=== PATIENT | male | born 1990 | race Caucasian/White ===

== ENCOUNTER 2022-09-28 15:52 | Outpatient (CLI) | payer BC, SELFPAY ==
[2022-09-28 16:08] LABS: Basophils Percent Auto 0.7 % (0.2-1.2); Eosinophils Absolute Auto 0.1 K/mm3 (0-0.3); Eosinophils Percent Auto 1.9 % (0-4.4); Hematocrit 42.7 % (42.0-52.0); Hemoglobin 15.9 g/dL (14.0-18.0); Immature Granulocyte Absolute 0.02 K/mm3 (0.00-0.031); Immature Granulocyte Percent A 0.5 % (0-0.5); Lymphocytes Absolute Auto 1.27 K/mm3 (0.9-3.2); Lymphocytes Percent Auto 30.2 % (18.3-44.2); Mean Corpuscular HGB Conc 37.2 g/dl (32-36); Mean Corpuscular Hemoglobin 31.6 pg (26-34); Mean Corpuscular Volume 84.9 fl (80-100); Mean Platelet Volume 10.6 fl (7.4-10.4); Monocytes Absolute Auto 0.3 K/mm3 (0.1-0.6); Monocytes Percent Auto 8.1 % (2.6-8.5); Neutrophils Absolute Auto 2.5 K/mm3 (1.3-6.7); Neutrophils Percent Auto 58.6 % (45.5-73.1); Platelet Count Result 179 k/mm3 (150-375); Red Blood Count 5.03 M/mm3 (4.6-6.20); Red Cell Distribution Width 11.9 % (11.5-14.5); White Blood Count 4.2 K/mm3 (4.5-10.0)
[2022-09-28 16:42] LABS: Alanine Aminotransferase 27 U/L (6-50); Albumin Level 4.9 g/dL (3.5-5.1); Alkaline Phosphatase 65 U/L (38-126); Anion Gap 7 mmol/L (8-16); Aspartate Amino Transferase 31 U/L (17-59); Blood Urea Nitrogen 22 mg/dL (9-20); CRP < 0.5 mg/dL (<1.0); Calcium 9.4 mg/dL (8.4-10.2); Carbon Dioxide 31 mmol/L (22-30); Chloride 98 mmol/L (98-107); Estimated Glomerular Filt Rate > 60; Glucose 92 mg/dL (65-110); Potassium 4.1 mmol/L (3.4-5.0); Sodium 136 mmol/L (137-145)
[2022-09-28 17:21] LABS: Erythrocyte Sedimentation Rate 4 mm/hr (0-20)
== END 2022-09-28 15:53 | disposition home or self-care (01) ==
LOC: ANHLAB 15:58
PROVIDERS: Visit Provider Internal Medicine Hematology & Oncology
DX: R59.1 Generalized enlarged lymph nodes (principal)
CPT/HCPCS: 36415; 80053; 85025; 85652; 86140; 88184

== ENCOUNTER 2023-01-17 07:06 | Outpatient (CLI) | payer BC, SELFPAY ==
--- NOTE | ~2023-01-17 | CT_ITS ---
EXAMINATION: CT abdomen pelvis w con DATE: 01/17/2023 07:43 INDICATION: Lymphadenopathy TECHNIQUE: Computed tomography (CT) of the abdomen and pelvis was performed with 100 mL Omnipaque-350 intravenous contrast. Automated exposure control and iterative reconstruction technique were employe d. The dose-length product was 371.95 mGy-cm. COMPARISON: None FINDINGS: Lung bases are clear. Heart size is normal. No pericardial or pleural effusion. Liver, gallbladder, p ancreas, bilateral adrenal glands and kidneys are normal. Mild splenomegaly measuring 14.6 cm in maxi mal AP length. Bowels including the appendix are normal. Bladder is normal. No free intraperitoneal g as or fluid. No pathologically enlarged abdominal or pelvic lymphadenopathy. There is relatively symm etric subarticular sclerosis with blurring of the trabecular pattern posterior superiorly at the bila teral femoral heads suspicious for early osteonecrosis. Prominent sclerotic bone island in the right supra-acetabular region. IMPRESSION: 1. Nonspecific mild splenomegaly. No pathologically enlarged abdominal or pelvic lymphadenopathy. 2. Suggestion of early osteonecrosis at the bilateral femoral heads. Could consider further evaluatio n with MRI. Reviewed, dictated and finalized at location L. IMPRESSION: 1. Nonspecific mild splenomegaly. No pathologically enlarged abdominal or pelvi c lymphadenopathy. 2. Suggestion of early osteonecrosis at the bilateral femoral heads. Could cons ider further evaluation with MRI.
[2023-01-17 08:42] LABS: Basophils Percent Auto 1.1 % (0.2-1.2); Eosinophils Absolute Auto 0.1 K/mm3 (0-0.3); Eosinophils Percent Auto 2.6 % (0-4.4); Hematocrit 42.1 % (42.0-52.0); Hemoglobin 15.5 g/dL (14.0-18.0); Immature Granulocyte Absolute 0.02 K/mm3 (0.00-0.031); Immature Granulocyte Percent A 0.5 % (0-0.5); Lymphocytes Absolute Auto 1.06 K/mm3 (0.9-3.2); Lymphocytes Percent Auto 27.9 % (18.3-44.2); Mean Corpuscular HGB Conc 36.8 g/dl (32-36); Mean Corpuscular Hemoglobin 31.4 pg (26-34); Mean Corpuscular Volume 85.2 fl (80-100); Mean Platelet Volume 10.7 fl (7.4-10.4); Monocytes Absolute Auto 0.3 K/mm3 (0.1-0.6); Monocytes Percent Auto 8.7 % (2.6-8.5); Neutrophils Absolute Auto 2.3 K/mm3 (1.3-6.7); Neutrophils Percent Auto 59.2 % (45.5-73.1); Platelet Count Result 160 k/mm3 (150-375); Red Blood Count 4.94 M/mm3 (4.6-6.20); Red Cell Distribution Width 12.2 % (11.5-14.5); White Blood Count 3.8 K/mm3 (4.5-10.0)
[2023-01-17 08:56] LABS: Alanine Aminotransferase 25 U/L (6-50); Albumin Level 4.7 g/dL (3.5-5.1); Alkaline Phosphatase 57 U/L (38-126); Anion Gap 6 mmol/L (8-16); Aspartate Amino Transferase 26 U/L (17-59); Bilirubin,Total 1.2 mg/dL (0.2-1.3); Blood Urea Nitrogen 23 mg/dL (9-20); Calcium 9.2 mg/dL (8.4-10.2); Carbon Dioxide 31 mmol/L (22-30); Chloride 100 mmol/L (98-107); Estimated Glomerular Filt Rate > 60; Glucose 84 mg/dL (65-110); Potassium 4.2 mmol/L (3.4-5.0); Sodium 137 mmol/L (137-145)
== END 2023-01-17 07:07 | disposition home or self-care (01) ==
PROVIDERS: PCP Nurse Practitioner Family; Visit Provider Internal Medicine Hematology & Oncology
DX: R59.1 Generalized enlarged lymph nodes (principal)
CPT/HCPCS: 36415; 74177; 80053; 85025; Q9967

== ENCOUNTER 2023-07-16 12:31 | Outpatient (CLI) | payer BC, SELFPAY ==
[2023-07-16 12:48] LABS: Basophils Absolute Auto 0.1 K/mm3 (0.0-0.1); Basophils Percent Auto 1.2 % (0.2-1.2); Eosinophils Absolute Auto 0.1 K/mm3 (0-0.3); Hematocrit 43.2 % (42.0-52.0); Hemoglobin 15.7 g/dL (14.0-18.0); Immature Granulocyte Absolute 0.02 K/mm3 (0.00-0.031); Immature Granulocyte Percent A 0.5 % (0-0.5); Lymphocytes Absolute Auto 0.91 K/mm3 (0.9-3.2); Lymphocytes Percent Auto 22.6 % (18.3-44.2); Mean Corpuscular HGB Conc 36.3 g/dl (32-36); Mean Corpuscular Hemoglobin 30.8 pg (26-34); Mean Corpuscular Volume 84.7 fl (80-100); Mean Platelet Volume 10.6 fl (7.4-10.4); Monocytes Absolute Auto 0.3 K/mm3 (0.1-0.6); Monocytes Percent Auto 7.2 % (2.6-8.5); Neutrophils Absolute Auto 2.7 K/mm3 (1.3-6.7); Neutrophils Percent Auto 66.5 % (45.5-73.1); Platelet Count Result 179 k/mm3 (150-375); Red Cell Distribution Width 12.4 % (11.5-14.5)
[2023-07-16 13:45] LABS: Alanine Aminotransferase 19 U/L (6-50); Albumin Level 4.9 g/dL (3.5-5.1); Alkaline Phosphatase 52 U/L (38-126); Anion Gap 8 mmol/L (8-16); Aspartate Amino Transferase 22 U/L (17-59); Blood Urea Nitrogen 20 mg/dL (9-20); Calcium 9.6 mg/dL (8.4-10.2); Carbon Dioxide 31 mmol/L (22-30); Chloride 101 mmol/L (98-107); Estimated Glomerular Filt Rate > 60; Glucose 86 mg/dL (65-110); Potassium 4.2 mmol/L (3.4-5.0); Sodium 140 mmol/L (137-145)
== END 2023-07-16 12:32 | disposition home or self-care (01) ==
LOC: ANHLAB 12:33
PROVIDERS: PCP Nurse Practitioner Family; Visit Provider Internal Medicine Hematology & Oncology
DX: R59.1 Generalized enlarged lymph nodes (principal)
CPT/HCPCS: 36415; 80053; 85025

== ENCOUNTER 2024-03-23 10:21 | Outpatient (CLI) | payer BC, SELFPAY ==
[2024-03-23 10:42] LABS: Basophils Percent Auto 0.5 % (0.2-1.2); Eosinophils Absolute Auto 0.2 K/mm3 (0-0.3); Hematocrit 43.8 % (42.0-52.0); Hemoglobin 15.7 g/dL (14.0-18.0); Immature Granulocyte Absolute 0.01 K/mm3 (0.00-0.031); Immature Granulocyte Percent A 0.3 % (0-0.5); Lymphocytes Absolute Auto 1.14 K/mm3 (0.9-3.2); Lymphocytes Percent Auto 30.2 % (18.3-44.2); Mean Corpuscular HGB Conc 35.8 g/dl (32-36); Mean Corpuscular Volume 86.4 fl (80-100); Mean Platelet Volume 11.2 fl (7.4-10.4); Monocytes Absolute Auto 0.4 K/mm3 (0.1-0.6); Monocytes Percent Auto 9.5 % (2.6-8.5); Neutrophils Absolute Auto 2.1 K/mm3 (1.3-6.7); Neutrophils Percent Auto 55.5 % (45.5-73.1); Platelet Count Result 181 k/mm3 (150-375); Red Blood Count 5.07 M/mm3 (4.6-6.20); Red Cell Distribution Width 12.2 % (11.5-14.5); White Blood Count 3.8 K/mm3 (4.5-10.0)
[2024-03-23 10:48] LABS: Blood Urea Nitrogen 22 mg/dL (8-26); Carbon Dioxide 28 mmol/L (22-30); Chloride 101 mmol/L (98-109); Estimated Glomerular Filt Rate > 60; Glucose 81 mg/dL (70-105); Ionized Calcium (POC) 1.26 mmol/L (1.11-1.31); Potassium 4.3 mmol/L (3.5-4.9); Sodium 140 mmol/L (138-146)
[2024-03-23 16:44] LABS: Alanine Aminotransferase 20 U/L (6-50); Albumin Level 4.8 g/dL (3.5-5.1); Alkaline Phosphatase 59 U/L (38-126); Anion Gap 9 mmol/L (4-12); Aspartate Amino Transferase 33 U/L (17-59); Bilirubin,Total 1.4 mg/dL (0.2-1.3); Blood Urea Nitrogen 23 mg/dL (9-20); Calcium 9.6 mg/dL (8.4-10.2); Carbon Dioxide 29 mmol/L (22-30); Chloride 101 mmol/L (98-107); Estimated Glomerular Filt Rate > 60; Glucose 78 mg/dL (65-110); Lactate Dehydrogenase 173 U/L (120-246); Potassium 4.5 mmol/L (3.4-5.0); Sodium 139 mmol/L (137-145)
== END 2024-03-23 10:22 | disposition home or self-care (01) ==
LOC: ANHLAB 10:23
PROVIDERS: PCP Nurse Practitioner Family; Visit Provider Internal Medicine Hematology & Oncology
DX: R59.1 Generalized enlarged lymph nodes (principal)
CPT/HCPCS: 36415; 80047; 80053; 83615; 85025

== ENCOUNTER 2025-03-25 08:58 | Outpatient (CLI) | payer BC, SELFPAY ==
--- OUTSIDE RECORDS SUMMARY | 2025-03-25 09:07 | XMS_ITS | Encounter Summary ---
Author Organization [facility] Address 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 Gender Identity Not on file Sexual Orientation Not on file documented as of this encounter Plan of Treatment Upcoming Encounters Date Type Department Care Team (Late st Contact Info) Description 03/25/2025 10:00 AM CDT Office Visit [facility] Oncology and Hematology - [place] [address] [place] [address] [facility] [address] [place] [address] Varun Jenkins MD [address] [place] [address] documented as of this encounter Procedures Procedure Name Priority Date/Time Associated Diagnosis Comments CBC WITH DIFFERENTIAL Routine 09/06/2007 9:51 AM SPORTS EQUIPMENT SUPERVISOR CBC WITH DIFFERENTIAL Routine 09/06/2007 9:51 AM SPORTS EQUIPMENT SUPERVISOR TSH Routine 09/06/2007 9:51 AM SPORTS EQUIPMENT SUPERVISOR COMPREHENSIVE METABOLIC PANEL Routine 09/06/2007 9:51 AM SPORTS EQUIPMENT SUPERVISOR documented in this encounter Results * (ABNORMAL) CBC WITH DIFFERENTIAL (09/06/2007 9:51 AM SPORTS EQUIPMENT SUPERVISOR) Pathologist [facility] NEUTROPHILS 54 45 - 70 % INTERFAC E SYSTEM LYMPHOCYTES 32 16 - 45 % INTERFAC E SYSTEM MONOCYTES 11 3 - 13 % INTERFACE SYSTEM EOSINOPHILS 2 0 - 7 % INTERFAC E SYSTEM BASOPHILS 1 0 - 2 % INTERFACE SYSTEM NEUTROPHIL ABSOLUTE 1.73(L) 1.90 - 7.00 K/uL INTERFACE SYSTEM LYMPHOCYTE ABSOLUTE 1.01 0.70 - 4.50 K/uL INTERFACE SYSTEM MONOCYTE ABSOLUTE 0.36 0.10 - 1.30 K/uL INTERFACE SYSTEM EOSINOPHIL ABSOLUTE 0.06 0.00 - 0.70 K/uL INTERFACE SYSTEM BASOPHILS ABSOLUTE 0.02 0.00 - 0.20 K/uL INTERFACE SYSTEM 09/06/2007 9:51 AM SPORTS EQUIPMENT SUPERVISOR us History Conversion HEMATOLOGY ORDERABLES Edited Performing Organization Address City/[facility] de Phone Number INTERFACE SYSTEM Refer to clinic/hospital department * (ABNORMAL) CBC WITH DIFFERENTIAL (09/06/2007 9:51 AM SPORTS EQUIPMENT SUPERVISOR) [facility] WBC 3.2(L) 4.0 - 9.8 K/uL INTERFACE SYSTEM RBC 5.21 4.50 - 5.40 M/uL INTERFACE SYSTEM HEMOGLOBIN 16.0 13.6 - 16.5 g/dL INTERFACE SYSTEM HEMATOCRIT 44.0 40.0 - 48.0 % INTERFACE SYSTEM MCV 84.4 82.0 - 99.0 fL INTERFACE SYSTEM MCH 30.7 27.2 - 32.6 pg INTERFACE SYSTEM MCHC 36.4(H) 31.5 - 35.5 % INTERFACE SYSTEM RDW 13.5 11.5 - 14.5 % INTERFACE SYSTEM RDW-STDEV 40.5 37.1 - 48.7 fL INTERFACE SYSTEM PLATELETS 175 140 - 350 K/uL INTERFACE SYSTEM MPV 12.0 9.3 - 12.4 fL INTERFACE SYSTEM 09/06/2007 9:51 AM SPORTS EQUIPMENT SUPERVISOR us History Conversion HEMATOLOGY ORDERABLES Edited Performing Organization Address [facility] de Phone Number INTERFACE SYSTEM Refer to clinic/hospital department * TSH (09/06/2007 9:51 AM SPORTS EQUIPMENT SUPERVISOR) TSH 1.39 0.27 - 4.20 uU/mL INTERFACE SYSTEM 09/06/2007 9:51 AM SPORTS EQUIPMENT SUPERVISOR us History Conversion CHEMISTRY ORDERABLES Edited INTERFACE SYSTEM Refer to clinic/hospital department * (ABNORMAL) COMPREHENSIVE METABOLIC PANEL (09/06/2007 9:51 AM SPORTS EQUIPMENT SUPERVISOR) GLUCOSE 86 60 - 110 mg/dL INTERFACE SYSTEM CREATININE 0.82 0.67 - 1.17 mg/dL INTERFACE SYSTEM CALCIUM 9.0 8.4 - 10.2 mg/dL INTERFACE SYSTEM ALKALINE PHOSPHATASE 264 40 - 390 U/L INTERFACE SYSTEM AST 33 12 - 38 U/L INTERFACE SYSTEM ALT 23 0 - 41 U/L INTERFACE SYSTEM TOTAL PROTEIN 7.1 6.3 - 8.6 g/dL INTERFACE SYSTEM ALBUMIN 4.7(H) 3.2 - 4.5 g/dL INTERFACE SYSTEM BILIRUBIN TOTAL 1.4(H) 0.2 - 1.0 mg/dL INTERFACE SYSTEM BUN 19 6 - 20 mg/dL INTERFACE SYSTEM SODIUM 140 135 - 145 mmol/L INTERFACE SYSTEM POTASSIUM 4.7 3.5 - 4.9 mmol/L INTERFACE SYSTEM CHLORIDE 102 96 - 108 mmol/L INTERFACE SYSTEM CO2 29 22 - 30 mmol/L INTERFACE SYSTEM GFR, N/A:MDRD equation validated for pts. >18 yrs. >=60 mL/min/1 .7 sq meter INTERFACE SYSTEM GFR N/A:MDRD equation validated for pts. >18 yrs. >=60 mL/min/1 .7 sq meter INTERFACE SYSTEM Comment: Estimated GFR rate interpretative information for both Americans and non- Americans is available on the [facility] Intranet at: [email or web address] Select: Lab Policies and Procedures Select: Reference Ranges - GFR 09/06/2007 9:51 AM SPORTS EQUIPMENT SUPERVISOR us History Conversion CHEMISTRY ORDERABLES Edited INTERFACE SYSTEM Refer to clinic/hospital department documented in this encounter Visit Diagnoses Diagnosis Variants of migraine, not elsewhere classified, without mention of intractable migraine without mention of status migrainosus Lymphadenopathy- Primary Enlargement of lymph nodes documented in this encounter
--- OUTSIDE RECORDS SUMMARY | 2025-03-25 09:07 | XMS_ITS | Clinical Summary ---
Author Organization [facility] Address [address] [place] [address] Care Team Providers Care Freight Weigher Name Role Phone Christine Smith MD Primary Care Provider [phone] [facility],non-owned Affiliates and Associated Physician Practices is amultiple site organization consisting of ambulatory clinics and hospital sitesin [place], [place], [place] and [place]. This disclosure is being madepursuant to the Care Everywhere program and may not contain all information available regarding this patient. Last updated 18.[facility] Allergies No known active allergies Medications * Be aware that medications may not be up to date on this document. Alwaysverify current medications with the patient. verapamil CR (ISOPTIN-SR) 120 MG tablet Take 160 mg by mouth BID. 6 Active indomethacin (INDOCIN) 25 MG capsule Take 30 mg by mouth as needed Active albuterol HFA (PROVENTIL;MAXIMO DEEPIKA;PROAIR) 108 (90 Base) MCG/ACT inhalerIndicatio ns:Acute sinusitis, recurrence not specified, unspecified location Inhale 2 (two) puffs by mouth every 6 hours as needed for Wheezing or Cough 1 Inhaler 1 Active Additional Information Patient not taking.Reported on 02/07/2022 topiramate (Topamax) 100 MG tablet Active pantoprazole EC (Protonix) 40 MG tablet TAKE 1 TABLET BY MOUTH 2 TIMES A DAY BEFORE BREAKFAST AND DINNER. 3 Active clobetasol (Temovate) 0.05 % creamIndications :Vitiligo Apply to affected areas on trunk & extremities every other day alternating with tacrolimus. 30 day supply. 45 g 3 4 Active tacrolimus (Protopic) 0.1 % ointmentIndicati ons:Vitiligo Apply to affected area anywhere on body twice daily. 30 day supply. 100 g 1 4 Active Active Problems Problem Noted Date Diagnosed Date Anxiety 12/13/2020 Eye infection 12/13/2020 Injury of lower leg 12/13/2020 Migraine 12/13/2020 Melanocytic nevus 05/04/2016 Vitiligo 05/04/2016 Assessment & Plan (12/13/2020 12:47 PM CDT): - Mild perioral vitiligo on face, scattered areas on body w/ partial repigmentation of flexural hips and dorsal hands - Re-start nbUVB BIW - Continue Protopic oint BID to AA face & body PRN - Start Clobetasol cream once daily to AA body weekends only (pt preference over QOD TAC cream) - Discussed [facility] if patient interested in the future Multiple benign nevi 05/04/2016 Headache disorder 11/11/2013 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 Resolved Problems Problem Noted Date Diagnosed Date Resolved Date Upper respiratory infection 12/13/2020 12/27/2020 Immunizations Immunization Administration Dates Next Due INFLUENZA VACCINE 07/02/2018 Family History Medical History Relation Name Comments Cancer - Skin, Non Melanoma Maternal Grandmother Allergy (Severe) Neg Hx Asthma Neg Hx CVA Neg Hx Cancer Neg Hx Cancer - Breast Neg Hx Cancer - Other Neg Hx Cancer - Skin, Melanoma Neg Hx Eczema Neg Hx Hemophilia Neg Hx Psoriasis Neg Hx Rashes/Skin Problems Neg Hx Relation Name Status Comments Maternal Grandmother Social History Tobacco Use Types Packs/Day Years Used Date Smoking Tobacco: Never Smokeless Tobacco: Never Tobacco Cessation:Counseling Given: Not Answered Alcohol Use Standard Drinks/Week Comments Yes 0 (1 standard drink = 0.6 oz pur e alcohol) Sex and Gender Information Value Date Recorded Sex Assigned at Not on file 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 Gender Identity Not on file Sexual Orientation Not on file Last Filed Vital Signs Vital Sign Reading Time Taken Comments Blood Pressure 110/70 02/17/2021 6:12 PM CDT Pulse 71 02/17/2021 6:12 PM CDT Temperature 36.6 C (97.8 F) 02/17/2021 6:12 PM CDT Respiratory Rate - - Oxygen Saturation 98% 02/17/2021 6:12 PM CDT Inhaled Oxygen Concentration - - Weight 86.2 kg (190 lb) 02/17/2021 6:12 PM CDT Height 188 cm (6' 2) 02/17/2021 6:12 PM CDT Body Mass Index 24.39 02/17/2021 6:12 PM CDT Plan of Treatment Health Maintenance Due Date Last Done Comments HIV SCREENING 2005 HEPATITIS C SCREENING 04/10/2008 DTAP/TDAP/TD VACCINES (1 - Tdap) 2009 HEPATITIS B VACCINE (1 of 3 - 19+ 3-dose series) 2009 COVID-19 VACCINE (3 - 2023-2 5 season) 2024 01/03/2021, 12/13/2020 DEPRESSION SCREENING 09/16/2024 INFLUENZA VACCINE (Season Ended) 2025 07/02/2018, 08/25/2013 ZOSTER VACCINE (1 of 2) 2040 HIB VACCINE Aged Out No longer eligi ble based on patient's age to complete this topic HPV VACCINE Aged Out No longer eligi ble based on patient's age to complete this topic MENINGOCOCCAL (Group B) VACCINE SHARED DECISION-MAKING Aged Out No longer eligible based on patient's age to complete this topic MENINGOCOCCAL GROUPS A/C/Y/W VACCINE Aged Out No longer eligible b ased on patient's age to complete this topic PNEUMOCOCCAL VACCINE Aged Out No long er eligible based on patient's age to complete this topic Insurance [facility] Care Teams Freight Weigher Relationship Specialty Start Date End Date Christine Smith MD [address] [place] [address] PCP - General 05/04/16
--- OUTSIDE RECORDS SUMMARY | 2025-03-25 09:07 | XMS_ITS | Clinical Summary ---
Author Organization [facility] Address [address] [place] [address] Phone Care Team Providers Care Prosthodontist/Owner Name Role Phone Unavailable Primary Care Provider Unavailabl e Allergies No known active allergies Medications verapamiL (CALAN) 80 mg tablet Take 160 mg by mouth 2 times daily. Active indomethacin (INDOCIN) 25 mg capsule Take 30 mg by mouth 1 time daily as needed. Active Active Problems No known active problems Encounters Date Type Department Care Team Description 02/16/2025 External Device Data [facility] ABSTRACTION Provider, Abstract 02/03/2025 External Device Data [facility] ABSTRACTION Provider, Abstract 02/02/2025 External Device Data [facility] ABSTRACTION Provider, Abstract 12/29/2024 External Device Data [facility] ABSTRACTION Provider, Abstract from Last 3 Months Family History Medical History Relation Name Comments No Known Problems Brother Dementia Father Hypertension Mother Relation Name Status Comments Brother Alive Father Alive Mother Alive Social History Tobacco Use Types Packs/Day Years Used Date Smoking Tobacco: Never Smokeless Tobacco: Never Tobacco Cessation:Counseling Given: Not Answered Alcohol Use Standard Drinks/Week Comments Yes 0 (1 standard drink = 0.6 oz pur e alcohol) socially Sex and Gender Information Value Date Recorded Sex Assigned at Not on file Legal 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 Gender Identity Not on file Sexual Orientation Not on file Last Filed Vital Signs Vital Sign Reading Time Taken Comments Blood Pressure 130/86 03/23/2024 10:44 AM CDT Pulse 62 03/23/2024 10:44 AM CDT Temperature 36.8 C (98.2 F) 03/23/2024 10:44 AM CDT Respiratory Rate 18 03/23/2024 10:44 AM CDT Oxygen Saturation 98% 03/23/2024 10:44 AM CDT Inhaled Oxygen Concentration - - Weight 83.5 kg (184 lb) 03/23/2024 10:44 AM CDT Height 188 cm (6' 2) 09/28/2022 3:09 PM BILLING CONTROL CLERK Body Mass Index 23.62 09/28/2022 3:09 PM BILLING CONTROL CLERK Plan of Treatment Upcoming Encounters Date Type Department Care Team (Late st Contact Info) Description 03/25/2025 10:00 AM CDT Office Visit [facility] Oncology and Hematology - [place] [facility] [address] [facility] [address] [place] [address] Varun Jenkins MD [address] [facility] [address] [place] [address] Health Maintenance Due Date Last Done Comments HEPATITIS B VACCINES (1 of 3 - 19+ 3-dose series) 2009 COVID-19 Vaccine (2023- season) 2024 01/03/2021, 12/13/2020 Preventative Visit- Commercial 09/16/2024 01/21/2024, 10/09/2022, 09/28/2021 INFLUENZA VACCINE (#1) 2025 07/02/2018 DTAP/TDAP/TD VACCINES (5 - Td or Tdap) 09/02/2031 09/02/2021, 03/12/2016, 03/23/2010, Additional history exists HPV VACCINES Aged Out No longer eligi ble based on patient's age to complete this topic Insurance [facility] BLUE ACCESS CHOICE
--- OUTSIDE RECORDS SUMMARY | 2025-03-25 09:08 | XMS_ITS | Data Portability ---
Author Organization [facility] DOMONIQUEИван [facility] Address [address] [place] [address] Assessment No assessment recorded. Plan of Treatment Reminders Order Date Submit Date Provider Last Modified By Organization Details Last Modified Time Details Appointments ANY 15 2025 10:00A Jefferson Hutchinson, DO Not available Not available Not available Lab CBC w/ auto diff 2024 025 DEBORAH LEON, [address] [place], [place] [address]merritt Mikey, [address] [address], [place], [address], 02/19/2025 09:38:24 CMP, serum or plasma 2024 025 DEBORAH LEON, [address] [place], [place] [address]merritt Jensen, [address] [address], [place], [address], 02/19/2025 09:38:21 lipid panel, serum 2024 025 DEBORAH LEON, [facility], [address] [address], [place], [address], 02/19/2025 09:38:20 TSH + free T4, serum 2024 025 DEBORAH LEON [facility], [facility] [address], [place], [address], 02/19/2025 09:38:18 urinal ysis comple te, reflex cultur e 2024 025 DEBORAH LEON, [address] [place], [place] [address]ot Mikey, [address], [place], [address], 02/19/2025 09:38:23 CBC w/ auto diff 2023 024 [facility], [address] [place], [place] [address]johnnie Jensen, [address], [place], [address], 01/22/2024 09:41:02 lipid panel, serum 2023 024 [facility], [address] [place], [place] [address]johnnie Jensen, [address], [place], [address], 01/22/2024 09:40:59 CMP, serum or plasma 2023 024 [facility], [address] [place], [place] [address]johnnie Jensen, [address], [place], [address], 01/22/2024 09:41:00 vitami n B12, serum 2023 024 [facility], [address] [place], [place] [address]merritt Mikey, [address], [place], [address], 01/22/2024 09:41:01 CBC w/ auto diff 2022 023 [facility] [facility], [address], [place], [address], 08/14/2023 17:01:43 BMP, serum or plasma 2022 023 [facility] [facility], [address], [address], [place], [address], 08/14/2023 17:01:43 lipid panel, serum 2021 022 [employer] [facility], [address], [address], [place], [address], 09/22/2022 07:12:26 CMP, serum or plasma 2021 022 [facility], [address] [facility], [address], [address], 09/22/2022 07:12:27 Referral None record ed. Procedures cerume n remova l (PROC) 2021 022 [email or web address] Not available 09/28/2021 15:32:06 Surgeries None record ed. Imaging None record ed. Medication Orders Indoci n 50 mg rectal suppos itory 2022 023 [id number] [address] [place], [address], 02/18/2025 11:13:43 Indoci n 50 mg rectal suppos itory 2022 023 [email or web address], [address] [place], [address], 02/17/2025 17:16:49 verapa mil 80 mg tablet 2022 023 [id number], [address] [place], [address], 02/17/2025 17:17:16 Indoci n 50 mg rectal suppos itory 2021 022 [email or web address], [address] [place], [address], 02/17/2025 17:16:49 verapa mil 80 mg tablet 2021 022 [id number], [address] [place], [address], 02/17/2025 17:17:16 Patient TargetsNo targets recorded. Patient Instructions Encounter Date Encounter Id Patient Instructions Last Modified By Organization Details Last Modified Time 09/28/2021 [id number] patient health questionnaire depression assessment* [email or web address] Not available 09/28/2021 15:27:17 A healthy lifestyle: care instructions [email or web address] Not available 09/28/2021 15:24:59 10/09/2022 [id number] Patient Health Questionnaire-9* [email or web address] Not available 10/09/2022 14:48:37 FRANSISCA-7 anxiety scale* [email or web address] Not available 10/09/2022 14:48:38 07/04/2023 [id number] Advised schedule fu with with new provider in [place] [email or web address] Not available 07/04/2023 13:47:17 01/21/2024 [id number] Patient Health Questionnaire-9* [email or web address] Not available 01/21/2024 10:34:53 FRANSISCA-7 anxiety scale* [email or web address] Not available 01/21/2024 10:34:53 02/18/2025 [id number] A healthy lifestyle: care instructions [email or web address] Not available 02/18/2025 11:20:40 Reason for Referral None Reported. Results Created Date Observation Date Name Description Value Unit Range Abnormal Flag Note LastModifiedBy Organization Detail LastModifiedTime 09/21/1909/22/2022 LIPID PANEL , STAND CHRISSIE cholesterol, total 133 mg/dL <200 normal Not Available [employer] [address], [address], 09/22/2022 07:12:26 09/21/1909/22/2022 LIPID PANEL , STAND CHRISSIE HDL cholesterol 41 mg/dL > or = 40 normal Not Available [employer] [address] [address] [place], [address], 09/22/2022 07:12:26 09/21/1909/22/2022 LIPID PANEL , STAND CHRISSIE triglyceride s 165 mg/dL <150 high Not Available [employer] [facility] [address] [place], [address], 09/22/2022 07:12:26 09/21/19 23 09/22/2022 LIPID PANEL , STAND CHRISSIE LDL-choleste rol 68 mg/dL _(roverto c) normal Refer ence range : <100 Jacqueline able range <100 mg/dL for prima ry preve ntion ; <70 mg/dL for patie nts with CHD or diabe tic patie nts with > or = 2 CHD risk facto rs. LDL-C is now calcu lated using the Alanna n-Hop kins calcu elinor n, which is a valid ated novel metho d provi ding araseli r accur acy than the Fried dhara equat ion in the estim ation of LDL-C . Alanna corrales SS et al. JAN. 2013; 310(1 9): 2061- 2068 (http ://ed ucati on.Qu [employer] Int[employer]. com/f aq/FA Q164) Not Available [employer] [address] [address] [address], [place], [address], 09/22/2022 07:12:26 09/21/19 23 09/22/2022 LIPID PANEL , STAND CHRISSIE chol/HDLC ratio 3.2 (calc ) <5.0 normal Not Available [facility] [address] [address] [address], [place], [address], 09/22/2022 07:12:26 09/21/1909/22/2022 LIPID PANEL , STAND CHRISSIE non HDL cholesterol 92 mg/dL _(roverto c) <130 normal For patie nts with diabe mango plus 1 major ASCVD risk facto r, treat ing to a non-H DL-C goal of <100 mg/dL (LDL- C of <70 mg/dL ) is consi dered a thera pejose manuel c optio n. Not Available [facility] [address] [address] [address], [place], [address], 09/22/2022 07:12:26 09/21/1909/22/2022 COMPR EHENS VAN METAB OLIC PANEL glucose 78 mg/dL 65-139 normal Non-f astin g refer ence inter ally Not Available [facility] [address] [address], [place], [address], 09/22/2022 07:12:27 09/21/19 23 09/22/2022 COMPR EHENS VAN METAB OLIC PANEL urea nitrogen (BUN) 27 mg/dL 7-25 high Not Available [address], [address], 09/22/2022 07:12:27 09/21/19 23 09/22/2022 COMPR EHENS VAN METAB OLIC PANEL creatinine 1.13 mg/dL 0.60-1 .26 normal Not Available [address], [address], 09/22/2022 07:12:27 09/21/19 23 09/22/2022 COMPR EHENS VAN METAB OLIC PANEL eGFR 89 mL/mi n/1.7 3m2 > or = 60 normal The eGFR is based on the CKD-E PI 2020 equat ion. To calcu late the new eGFR from a previ ous Creat inine or Cysta tin C resul t, go to https ://luis luther.ebony horton.o haydee/debora morales s/ kdoqi /gfr% 5Fcal culat or Not Available [address], [address], 09/22/2022 07:12:27 09/21/19 23 09/22/2022 COMPR EHENS VAN METAB OLIC PANEL BUN/creatini ne ratio 24 (calc ) 6-22 high Not Available [address], [address], 09/22/2022 07:12:27 09/21/19 23 09/22/2022 COMPR EHENS VAN METAB OLIC PANEL sodium 136 mmol/ L 135-14 6 normal Not Available [address], [address], 09/22/2022 07:12:27 09/21/19 23 09/22/2022 COMPR EHENS VAN METAB OLIC PANEL potassium 4.2 mmol/ L 3.5-5. 3 normal Not Available [address] [place], [address], 09/22/2022 07:12:27 09/21/19 23 09/22/2022 COMPR EHENS VAN METAB OLIC PANEL chloride 101 mmol/ L 98-110 normal Not Available [facility] [address], [address], 09/22/2022 07:12:27 09/21/19 23 09/22/2022 COMPR EHENS VAN METAB OLIC PANEL carbon dioxide 29 mmol/ L 20-32 normal Not Available [facility] [address], [address], 09/22/2022 07:12:27 09/21/19 23 09/22/2022 COMPR EHENS VAN METAB OLIC PANEL calcium 10.2 mg/dL 8.6-10 .3 normal Not Available [address], [address], 09/22/2022 07:12:27 09/21/19 23 09/22/2022 COMPR EHENS VAN METAB OLIC PANEL protein, total 7.4 g/dL 6.1-8. 1 normal Not Available [address], [address], 09/22/2022 07:12:27 09/21/19 23 09/22/2022 COMPR EHENS VAN METAB OLIC PANEL albumin 5.0 g/dL 3.6-5. 1 normal Not Available [facility] [address] [place], [address], 09/22/2022 07:12:27 09/21/19 23 09/22/2022 COMPR EHENS VAN METAB OLIC PANEL globulin 2.4 g/dL_ (calc ) 1.9-3. 7 normal Not Available [address], [address], 09/22/2022 07:12:27 09/21/19 23 09/22/2022 COMPR EHENS VAN METAB OLIC PANEL albumin/glob ulin ratio 2.1 (calc ) 1.0-2. 5 normal Not Available [address], [address], 09/22/2022 07:12:27 09/21/19 23 09/22/2022 COMPR EHENS VAN METAB OLIC PANEL bilirubin, total 0.9 mg/dL 0.2-1. 2 normal Not Available [address] [address] [place], [address], 09/22/2022 07:12:27 09/21/19 23 09/22/2022 COMPR EHENS VAN METAB OLIC PANEL alkaline phosphatase 68 U/L 36-130 normal Not Available [address], [address], 09/22/2022 07:12:27 09/21/19 23 09/22/2022 COMPR EHENS VAN METAB OLIC PANEL AST 18 U/L 10-40 normal Not Available [address], [address], 09/22/2022 07:12:27 09/21/19 23 09/22/2022 COMPR EHENS VAN METAB OLIC PANEL ALT 19 U/L 9-46 normal Not Available [address], [address], 09/22/2022 07:12:27 01/21/20 24 01/22/2024 LIPID PANEL cholesterol, total 149 mg/dL 100-19 9 Not Available [facility] ([facility]) [address] [place], [address], 01/22/2024 09:40:59 01/21/20 24 01/22/2024 LIPID PANEL triglyceride s 118 mg/dL 0-149 Not Available [facility] ([facility]) [address] [facility], [address], 01/22/2024 09:40:59 01/21/20 24 01/22/2024 LIPID PANEL HDL cholesterol 37 mg/dL >39 below low normal Not Available [facility] ([facility]) [address] [place], [address], 01/22/2024 09:40:59 01/21/20 24 01/22/2024 LIPID PANEL VLDL cholesterol roverto 21 mg/dL 5-40 Not Available [facility] ([facility]) [address] [place], [address], 01/22/2024 09:40:59 01/21/20 24 01/22/2024 LIPID PANEL LDL chol calc ([facility]) 91 mg/dL 0-99 Not Available [facility]) [address] [place], [address], 01/22/2024 09:40:59 01/21/20 24 01/22/2024 COMP. METAB OLIC PANEL (14) glucose 85 mg/dL 70-99 Not Available [facility] ([facility]) [address] [place], [address], 01/22/2024 09:41:00 01/21/20 24 01/22/2024 COMP. METAB OLIC PANEL (14) BUN 22 mg/dL 6-20 above high normal Not Available [facility] ([facility]) [address] [place], [address], 01/22/2024 09:41:00 01/21/20 24 01/22/2024 COMP. METAB OLIC PANEL (14) creatinine 1.12 mg/dL 0.76-1 .27 Not Available [facility] ([facility]) [address] [place], [address], 01/22/2024 09:41:00 01/21/20 24 01/22/2024 COMP. METAB OLIC PANEL (14) eGFR 89 mL/mi n/1.7 3 >59 Not Available [facility] ([facility]) [address] [place], [address], 01/22/2024 09:41:00 01/21/20 24 01/22/2024 COMP. METAB OLIC PANEL (14) BUN/creatini ne ratio 20 9-20 Not Available [facility] ([facility]) [address] [place], [address], 01/22/2024 09:41:00 01/21/20 24 01/22/2024 COMP. METAB OLIC PANEL (14) sodium 140 mmol/ L 134-14 4 Not Available [facility] ([facility]) [address] [place], [address], 01/22/2024 09:41:00 01/21/20 24 01/22/2024 COMP. METAB OLIC PANEL (14) potassium 4.1 mmol/ L 3.5-5. 2 Not Available [facility] ([facility]) [address] [place], [address], 01/22/2024 09:41:00 01/21/20 24 01/22/2024 COMP. METAB OLIC PANEL (14) chloride 101 mmol/ L 96-106 Not Available [facility] ([facility]) [address] [place], [address], 01/22/2024 09:41:00 01/21/20 24 01/22/2024 COMP. METAB OLIC PANEL (14) carbon dioxide, total 26 mmol/ L 20-29 Not Available [facility] ([facility]) [address] [place], [address], 01/22/2024 09:41:00 01/21/20 24 01/22/2024 COMP. METAB OLIC PANEL (14) calcium 10.0 mg/dL 8.7-10 .2 Not Available [facility] ([facility]) [address] [place], [address], 01/22/2024 09:41:00 01/21/20 24 01/22/2024 COMP. METAB OLIC PANEL (14) protein, total 7.4 g/dL 6.0-8. 5 Not Available [facility] ([facility]) [address] [place], [address], 01/22/2024 09:41:00 01/21/20 24 01/22/2024 COMP. METAB OLIC PANEL (14) albumin 4.8 g/dL 4.1-5. 1 Not Available [facility] ([facility]) [address] [place], [address], 01/22/2024 09:41:00 01/21/20 24 01/22/2024 COMP. METAB OLIC PANEL (14) globulin, total 2.6 g/dL 1.5-4. 5 Not Available [facility] ([facility]) [address] [place], [address], 01/22/2024 09:41:00 01/21/20 24 01/22/2024 COMP. METAB OLIC PANEL (14) A/G ratio 1.8 1.2-2. 2 Not Available [facility] ([facility]) [address] [place], [address], 01/22/2024 09:41:00 01/21/20 24 01/22/2024 COMP. METAB OLIC PANEL (14) bilirubin, total 0.7 mg/dL 0.0-1. 2 Not Available [facility] ([facility]) [address] [place], [address], 01/22/2024 09:41:00 01/21/20 24 01/22/2024 COMP. METAB OLIC PANEL (14) alkaline phosphatase 82 IU/L 44-121 Not Available [facility]) [address] [place], [address], 01/22/2024 09:41:00 01/21/20 24 01/22/2024 COMP. METAB OLIC PANEL (14) AST (SGOT) 20 IU/L 0-40 Not Available [facility] ([facility]) [address] [facility], [place], [address], 01/22/2024 09:41:00 01/21/20 24 01/22/2024 COMP. METAB OLIC PANEL (14) ALT (SGPT) 20 IU/L 0-44 Not Available [facility] ([facility]) [address] [facility], [place], [address], 01/22/2024 09:41:00 01/21/20 24 01/22/2024 VITAM IN B12 vitamin B12 388 pg/mL 232-12 45 Not Available [facility] ([facility]) [address] [facility], [place], [address], 01/22/2024 09:41:01 01/21/20 24 01/22/2024 CBC WITH DIFFE RENTI AL/PL ATELE T WBC 4.5 x10e3 /uL 3.4-10 .8 Not Available [facility] ([facility]) [address] [facility], [place], [address], 01/22/2024 09:41:02 01/21/20 24 01/22/2024 CBC WITH DIFFE RENTI AL/PL ATELE T RBC 5.25 x10e6 /uL 4.14-5 .80 Not Available [facility] ([facility]) [address] [facility], [place], [address], 01/22/2024 09:41:02 01/21/20 24 01/22/2024 CBC WITH DIFFE RENTI AL/PL ATELE T hemoglobin 15.9 g/dL 13.0-1 7.7 Not Available [facility] ([facility]) [address] [facility], [place], [address], 01/22/2024 09:41:02 05/07/20 24 01/22/2024 CBC WITH DIFFE RENTI AL/PL ATELE T hematocrit 46.5 % 37.5-5 1.0 Not Available [facility] ([facility]) [address] [facility], [place], [address], 01/22/2024 09:41:02 01/21/20 24 01/22/2024 CBC WITH DIFFE RENTI AL/PL ATELE T MCV 89 fL 79-97 Not Available [facility] ([facility]) [address] [facility], [place], [address], 01/22/2024 09:41:02 01/21/20 24 01/22/2024 CBC WITH DIFFE RENTI AL/PL ATELE T MCH 30.3 pg 26.6-3 3.0 Not Available [facility] ([facility]) [address] [facility], [place], [address], 01/22/2024 09:41:02 01/21/20 24 01/22/2024 CBC WITH DIFFE RENTI AL/PL ATELE T MCHC 34.2 g/dL 31.5-3 5.7 Not Available [facility] ([facility]) [address] [facility], [place], [address], 01/22/2024 09:41:02 01/21/20 24 01/22/2024 CBC WITH DIFFE RENTI AL/PL ATELE T RDW 12.8 % 11.6-1 5.4 Not Available [facility] ([facility]) [address] [place], [address], 01/22/2024 09:41:02 01/21/2001/22/2024 CBC WITH DIFFE RENTI AL/PL ATELE T platelets 198 x10e3 /uL 150-45 0 Not Available [facility] ([facility]) [address] [place], [address], 01/22/2024 09:41:02 01/21/20 24 01/22/2024 CBC WITH DIFFE RENTI AL/PL ATELE T neutrophils 60 % notest ab. Not Available [facility] ([facility]) [address] [facility], [place], [address], 01/22/2024 09:41:02 01/21/20 24 01/22/2024 CBC WITH DIFFE RENTI AL/PL ATELE T lymphs 25 % notest ab. Not Available [facility] ([facility]) [address] [facility], [place], [address], 01/22/2024 09:41:02 01/21/20 24 01/22/2024 CBC WITH DIFFE RENTI AL/PL ATELE T monocytes 8 % notest ab. Not Available [facility] ([facility]) [address] [facility], [place], [address], 01/22/2024 09:41:02 01/21/20 24 01/22/2024 CBC WITH DIFFE RENTI AL/PL ATELE T eos 4 % notest ab. Not Available [facility] ([facility]) [address] [facility], [place], [address], 01/22/2024 09:41:02 01/21/20 24 01/22/2024 CBC WITH DIFFE RENTI AL/PL ATELE T basos 1 % notest ab. Not Available [facility] ([facility]) [address] [facility], [place], [address], 01/22/2024 09:41:02 01/21/20 24 01/22/2024 CBC WITH DIFFE RENTI AL/PL ATELE T neutrophils (absolute) 2.7 x10e3 /uL 1.4-7. 0 Not Available [facility] ([facility]) [address] [facility], [place], [address], 01/22/2024 09:41:02 01/21/20 24 01/22/2024 CBC WITH DIFFE RENTI AL/PL ATELE T lymphs (absolute) 1.1 x10e3 /uL 0.7-3. 1 Not Available [facility] ([facility]) [address] [facility], [place], [address], 01/22/2024 09:41:02 01/21/20 24 01/22/2024 CBC WITH DIFFE RENTI AL/PL ATELE T monocytes(ab solute) 0.3 x10e3 /uL 0.1-0. 9 Not Available [facility] ([facility]) [address] [facility], [place], [address], 01/22/2024 09:41:02 01/21/20 24 01/22/2024 CBC WITH DIFFE RENTI AL/PL ATELE T eos (absolute) 0.2 x10e3 /uL 0.0-0. 4 Not Available [facility] ([facility]) [address] [facility], [place], [address], 01/22/2024 09:41:02 01/21/20 24 01/22/2024 CBC WITH DIFFE RENTI AL/PL ATELE T baso (absolute) 0.1 x10e3 /uL 0.0-0. 2 Not Available [facility] ([facility]) [address] [facility], [place], [address], 01/22/2024 09:41:02 01/21/20 24 01/22/2024 CBC WITH DIFFE RENTI AL/PL ATELE T immature granulocytes 2 % notest ab. Not Available [facility] ([facility]) [address] [facility], [place], [address], 01/22/2024 09:41:02 01/21/20 24 01/22/2024 CBC WITH DIFFE RENTI AL/PL ATELE T immature grans (abs) 0.1 x10e3 /uL 0.0-0. 1 Not Available [facility] ([facility]) [address] [facility], [place], [address], 01/22/2024 09:41:02 02/19/20 25 02/19/2025 TSH+F REE T4 TSH 3.030 uIU/m L 0.450- 4.500 Not Available [facility] ([facility]) [address] [place], [address], 02/19/2025 09:38:18 02/19/20 25 02/19/2025 TSH+F REE T4 T4,free(dire ct) 1.24 NG/dL 0.82-1 .77 Not Available [facility] ([facility]) [address] [place], [address], 02/19/2025 09:38:18 02/19/20 25 02/19/2025 LIPID PANEL cholesterol, total 112 mg/dL 100-19 9 Not Available [facility] ([facility]) [address] [place], [address], 02/19/2025 09:38:20 02/19/20 25 02/19/2025 LIPID PANEL triglyceride s 112 mg/dL 0-149 Not Available [facility] ([facility]) [address] [place], [address], 02/19/2025 09:38:20 02/19/20 25 02/19/2025 LIPID PANEL HDL cholesterol 36 mg/dL >39 below low normal Not Available [facility] ([facility]) [address] [place], [address], 02/19/2025 09:38:20 02/19/20 25 02/19/2025 LIPID PANEL VLDL cholesterol roverto 21 mg/dL 5-40 Not Available [facility] ([facility]) [address] [place], [address], 02/19/2025 09:38:20 02/19/20 25 02/19/2025 LIPID PANEL LDL chol calc ([facility]) 55 mg/dL 0-99 Not Available [facility] ([facility]) [address] [place], [address], 02/19/2025 09:38:20 02/19/20 25 02/19/2025 COMP. METAB OLIC PANEL (14) glucose 82 mg/dL 70-99 Not Available [facility] ([facility]) [address] [place], [address], 02/19/2025 09:38:21 02/19/20 25 02/19/2025 COMP. METAB OLIC PANEL (14) BUN 16 mg/dL 6-20 Not Available [facility] ([facility]) [address] [place], [address], 02/19/2025 09:38:21 02/19/20 25 02/19/2025 COMP. METAB OLIC PANEL (14) creatinine 1.00 mg/dL 0.76-1 .27 Not Available [facility] ([facility]) [address] [place], [address], 02/19/2025 09:38:21 02/19/20 25 02/19/2025 COMP. METAB OLIC PANEL (14) eGFR 101 mL/mi n/1.7 3 >59 Not Available [facility] ([facility]) [address] [place], [address], 02/19/2025 09:38:21 02/19/20 25 02/19/2025 COMP. METAB OLIC PANEL (14) BUN/creatini ne ratio 16 9-20 Not Available [facility] ([facility]) [address] [place], [address], 02/19/2025 09:38:21 02/19/20 25 02/19/2025 COMP. METAB OLIC PANEL (14) sodium 140 mmol/ L 134-14 4 Not Available [facility] ([facility]) [address] [place], [address], 02/19/2025 09:38:21 02/19/20 25 02/19/2025 COMP. METAB OLIC PANEL (14) potassium 4.2 mmol/ L 3.5-5. 2 Not Available [facility] ([facility]) [address] [place], [address], 02/19/2025 09:38:21 02/19/20 25 02/19/2025 COMP. METAB OLIC PANEL (14) chloride 101 mmol/ L 96-106 Not Available [facility] ([facility]) [address] [place], [address], 02/19/2025 09:38:21 02/19/20 25 02/19/2025 COMP. METAB OLIC PANEL (14) carbon dioxide, total 23 mmol/ L 20-29 Not Available [facility] ([facility]) [address] [facility], [place], [address], 02/19/2025 09:38:21 02/19/20 25 02/19/2025 COMP. METAB OLIC PANEL (14) calcium 9.8 mg/dL 8.7-10 .2 Not Available [facility] ([facility]) [address] [facility], [place], [address], 02/19/2025 09:38:21 02/19/20 25 02/19/2025 COMP. METAB OLIC PANEL (14) protein, total 6.9 g/dL 6.0-8. 5 Not Available [facility] ([facility]) [address] [facility], [place], [address], 02/19/2025 09:38:21 02/19/20 25 02/19/2025 COMP. METAB OLIC PANEL (14) albumin 4.8 g/dL 4.1-5. 1 Not Available [facility] ([facility]) [address] [place], [address], 02/19/2025 09:38:21 02/19/20 25 02/19/2025 COMP. METAB OLIC PANEL (14) globulin, total 2.1 g/dL 1.5-4. 5 Not Available [facility] ([facility]) [address] [place], [id number], 02/19/2025 09:38:21 02/19/20 25 02/19/2025 COMP. METAB OLIC PANEL (14) bilirubin, total 0.5 mg/dL 0.0-1. 2 Not Available [facility] ([facility]) [address] [place], [id number], 02/19/2025 09:38:21 02/19/20 25 02/19/2025 COMP. METAB OLIC PANEL (14) alkaline phosphatase 85 IU/L 44-121 Not Available [facility] ([facility]) [address] [place], [address], 02/19/2025 09:38:21 02/19/20 25 02/19/2025 COMP. METAB OLIC PANEL (14) AST (SGOT) 25 IU/L 0-40 Not Available [facility] ([facility]) [address] [place], [id number], 02/19/2025 09:38:21 02/19/20 25 02/19/2025 COMP. METAB OLIC PANEL (14) ALT (SGPT) 24 IU/L 0-44 Not Available [facility] ([facility]) [address] [place], [id number], 02/19/2025 09:38:21 02/19/20 25 02/19/2025 UA WITH CULTU RE REFLE X specific gravity 1.010 1.005- 1.030 Not Available [facility] ([facility]) [address] [place], [address], 02/19/2025 09:38:23 02/19/20 25 02/19/2025 UA WITH CULTU RE REFLE X pH 7.0 5.0-7. 5 Not Available [facility] ([facility]) [address] [place], [address], 02/19/2025 09:38:23 02/19/20 25 02/19/2025 UA WITH CULTU RE REFLE X urine-color YELLOW yellow Not Available [facility] ([facility]) [address] [place], [address], 02/19/2025 09:38:23 02/19/20 25 02/19/2025 UA WITH CULTU RE REFLE X appearance CLEAR clear Not Available [facility] ([facility]) [address] [place], [address], 02/19/2025 09:38:23 02/19/20 25 02/19/2025 UA WITH CULTU RE REFLE X WBC esterase NEGATI VE negati ve Not Available [facility] ([facility]) [address] [place], [address], 02/19/2025 09:38:23 02/19/20 25 02/19/2025 UA WITH CULTU RE REFLE X protein NEGATI VE negati ve/tra ce Not Available [facility] ([facility]) [address] [place], [address], 02/19/2025 09:38:23 02/19/20 25 02/19/2025 UA WITH CULTU RE REFLE X glucose NEGATI VE negati ve Not Available [facility] ([facility]) [address] [place], [address], 02/19/2025 09:38:23 02/19/20 25 02/19/2025 UA WITH CULTU RE REFLE X ketones NEGATI VE negati ve Not Available [facility] ([facility]) [address] [place], [address], 02/19/2025 09:38:23 02/19/20 25 02/19/2025 UA WITH CULTU RE REFLE X occult blood NEGATI VE negati ve Not Available [facility] ([facility]) [address] [place], [address], 02/19/2025 09:38:23 02/19/20 25 02/19/2025 UA WITH CULTU RE REFLE X bilirubin NEGATI VE negati ve Not Available [facility] ([facility]) [address] [facility], [place], [address], 02/19/2025 09:38:23 02/19/20 25 02/19/2025 UA WITH CULTU RE REFLE X urobilinogen ,semi-qn 0.2 mg/dL 0.2-1. 0 Not Available [facility] ([facility]) [address] [place], [address], 02/19/2025 09:38:23 02/19/20 25 02/19/2025 UA WITH CULTU RE REFLE X nitrite, urine NEGATI VE negati ve Not Available [facility] ([facility]) [address] [place], [address], 02/19/2025 09:38:23 02/19/20 25 02/19/2025 UA WITH CULTU RE REFLE X microscopic examination COMMEN T Micro scopi c not indic ated and not perfo rmed. Not Available [facility] ([facility]) [address] [place], [address], 02/19/2025 09:38:23 02/19/20 25 02/19/2025 UA WITH CULTU RE REFLE X urinalysis reflex TNP Test not perfo rmed. No urine speci men recei elsa. Not Available [facility] ([facility]) [address] [place], [address], 02/19/2025 09:38:23 02/19/20 25 02/19/2025 CBC WITH DIFFE RENTI AL/PL ATELE T WBC 3.5 x10e3 /uL 3.4-10 .8 Not Available [facility] ([facility]) [address] [place], [address], 02/19/2025 09:38:24 02/19/20 25 02/19/2025 CBC WITH DIFFE RENTI AL/PL ATELE T RBC 5.44 x10e6 /uL 4.14-5 .80 Not Available [facility] ([facility]) [address] [place], [address], 02/19/2025 09:38:24 02/19/20 25 02/19/2025 CBC WITH DIFFE RENTI AL/PL ATELE T hemoglobin 16.6 g/dL 13.0-1 7.7 Not Available [facility] ([facility]) [address] [place], [address], 02/19/2025 09:38:24 02/19/20 25 02/19/2025 CBC WITH DIFFE RENTI AL/PL ATELE T hematocrit 49.7 % 37.5-5 1.0 Not Available [facility] ([facility]) [address] [place], [address], 02/19/2025 09:38:24 02/19/20 25 02/19/2025 CBC WITH DIFFE RENTI AL/PL ATELE T MCV 91 fL 79-97 Not Available [facility] ([facility]) [address] [place], [address], 02/19/2025 09:38:24 02/19/20 25 02/19/2025 CBC WITH DIFFE RENTI AL/PL ATELE T MCH 30.5 pg 26.6-3 3.0 Not Available [facility] ([facility]) [address] [place], [address], 02/19/2025 09:38:24 02/19/20 25 02/19/2025 CBC WITH DIFFE RENTI AL/PL ATELE T MCHC 33.4 g/dL 31.5-3 5.7 Not Available [facility] ([facility]) [address] [place], [address], 02/19/2025 09:38:24 02/19/20 25 02/19/2025 CBC WITH DIFFE RENTI AL/PL ATELE T RDW 12.9 % 11.6-1 5.4 Not Available [facility] ([facility]) [address] [facility], [place], [address], 02/19/2025 09:38:24 02/19/20 25 02/19/2025 CBC WITH DIFFE RENTI AL/PL ATELE T platelets 243 x10e3 /uL 150-45 0 Not Available [facility] ([facility]) [address] [facility], [place], [address], 02/19/2025 09:38:24 02/19/20 25 02/19/2025 CBC WITH DIFFE RENTI AL/PL ATELE T neutrophils 52 % notest ab. Not Available [facility] ([facility]) [address] [facility], [place], [address], 02/19/2025 09:38:24 02/19/20 25 02/19/2025 CBC WITH DIFFE RENTI AL/PL ATELE T lymphs 33 % notest ab. Not Available [facility] ([facility]) [address] [facility], [place], [address], 02/19/2025 09:38:24 02/19/20 25 02/19/2025 CBC WITH DIFFE RENTI AL/PL ATELE T monocytes 8 % notest ab. Not Available [facility] ([facility]) [address] [facility], [place], [address], 02/19/2025 09:38:24 02/19/20 25 02/19/2025 CBC WITH DIFFE RENTI AL/PL ATELE T eos 5 % notest ab. Not Available [facility] ([facility]) [address] [facility], [place], [address], 02/19/2025 09:38:24 02/19/20 25 02/19/2025 CBC WITH DIFFE RENTI AL/PL ATELE T basos 1 % notest ab. Not Available [facility] ([facility]) [address] [facility], [place], [address], 02/19/2025 09:38:24 02/19/20 25 02/19/2025 CBC WITH DIFFE RENTI AL/PL ATELE T neutrophils (absolute) 1.8 x10e3 /uL 1.4-7. 0 Not Available [facility] ([facility]) [address] [facility], [place], [address], 02/19/2025 09:38:24 02/19/20 25 02/19/2025 CBC WITH DIFFE RENTI AL/PL ATELE T lymphs (absolute) 1.1 x10e3 /uL 0.7-3. 1 Not Available [facility] ([facility]) [address] [place], [address], 02/19/2025 09:38:24 02/19/20 25 02/19/2025 CBC WITH DIFFE RENTI AL/PL ATELE T monocytes(ab solute) 0.3 x10e3 /uL 0.1-0. 9 Not Available [facility] ([facility]) [address] [place], [address], 02/19/2025 09:38:24 02/19/20 25 02/19/2025 CBC WITH DIFFE RENTI AL/PL ATELE T eos (absolute) 0.2 x10e3 /uL 0.0-0. 4 Not Available [facility] ([facility]) [address] [place], [address], 02/19/2025 09:38:24 02/19/20 25 02/19/2025 CBC WITH DIFFE RENTI AL/PL ATELE T baso (absolute) 0.0 x10e3 /uL 0.0-0. 2 Not Available [facility] ([facility]) [address] [place], [address], 02/19/2025 09:38:24 02/19/20 25 02/19/2025 CBC WITH DIFFE RENTI AL/PL ATELE T immature granulocytes 1 % notest ab. Not Available [facility] ([facility]) [address] [facility], [place], [address], 02/19/2025 09:38:24 02/19/20 25 02/19/2025 CBC WITH DIFFE RENTI AL/PL ATELE T immature grans (abs) 0.0 x10e3 /uL 0.0-0. 1 Not Available [facility] ([facility]) [address] [facility], [place], [address], 02/19/2025 09:38:24 01/18/20 23 01/17/2023 CT, abdom en + pelvi s, w/ contr ast No observ ation record ed. [email or web address] [facility] [address], [place], [address], 01/17/2023 13:58:59 Result Notes None recorded. Problems Name Problem SNOMED Code Status Onset Date Resolution Date Notes Provider Name and Address Organization Details Recorded Time Vitiligo 60858600 Active 2021 CHELI SCHAEFER Attn: Edy lincoln,[address] [facility], [place], [address], [facility] 2 15:20:08 Upper respiratory infection 82665283 Completed 02/27/2019 CHELI SCHAEFER Attn: Edy lincoln,[address] [facility], [place], [address], [facility] 9 14:47:12 Eye infection 941974617 Completed 02/27/2019 CHELI SCHAEFER Attn: Edy lincoln,[address] [facility], [place], [address], [facility] 9 14:47:08 Migraine 07141132 Active MAYKEL Zheng Attn: Edy lincoln,[address] [facility], [place], [address], [facility] 6 16:12:55 Anxiety 01817347 Active Gurjit Guerra MA null, [place] - [facility] 6 10:46:48 Injury of lower leg 266386884 Completed 02/27/2019 CHELI SCHAEFER Attn: Accountcristin g,[address] [facility], [place], [address], [facility] 9 14:47:05 Problem Notes None recorded. Procedures Surgical History Date Name Laterality Status Provider Name and Address Organization Details Recorded Time 2 Cerumen Removal completed CHELI SCHAEFER Attn: Accounting, [facility], [place], [address], [facility] 09/28/2021 15:29:07 Imaging Results None recorded. Procedure Notes None recorded. Medical Equipment None Reported. Allergies No known drug allergies Medications Name Sig Start Date Stop Date Status Note LastModified by Organization Details LastModified Time verapamil ER (SR) 120 mg tablet,exte nded release TAKE 2 TABLETS (240 MG TOTAL) BY MOUTH 2 (TWO) TIMES A DAY. active Not Available Not Available No t Available cefprozil 500 mg tablet Take 1 tablet twice a day by oral route for 10 days. 04/17 completed Not Available Not Available Not Available prednisone 10 mg tablet active Not Available Not Available Not Available Lidocaine Viscous 2 % mucosal solution 09/27 completed Not Available Not Available Not Available Levaquin 750 mg tablet Take 1 tablet every day by oral route for 7 days. 04/17 completed Not Available Not Available Not Available prednisone 20 mg tablet TAKE EVERY MORNING WITH FOOD PER TAPER 60MG,60MG ,40MG,40M G,20MG,20 MG,20MG,1 0MG,10MG, 10MG,10MG 02/17 completed Not Available Not Available Not Available pimecrolimu s 1 % topical cream 02/17 completed Not Available Not Available Not Available clobetasol 0.05 % topical cream PLEASE SEE ATTACHED FOR DETAILED DIRECTION S active Not Available Not Available No t Available peg-electro lyte solution 420 gram oral solution USE DIRECTED 10/09 completed Not Available Not Available Not Available ofloxacin 0.3 % ear drops TAKE 10 DROPS (OTIC (EAR)) 1 TIME PER DAY FOR 5 DAYS SP: DR. EDEN SWIFT 01/20 completed Not Available Not Available Not Available alprazolam 0.25 mg tablet active Not Available Not Available Not Available prednisolon e acetate 1 % eye drops,suspe nsion INSTILL 1 DROP INTO BOTH EYES THREE TIMES A DAY 09/27 completed Not Available Not Available Not Available hydrocodone 7.5 mg-acetamin ophen 325 mg tablet active Not Available Not Available No t Available pantoprazol e 40 mg tablet,dutch yed release TAKE 1 TABLET BY MOUTH 2 TIMES A DAY BEFORE BREAKFAST AND DINNER. active Not Available Not Available No t Available tacrolimus 0.1 % topical ointment APPLY TO AFFECTED AREA ANYWHERE ON BODY TWICE DAILY. 30 DAY SUPPLY. 02/17 completed Not Available Not Available Not Available promethazin e 25 mg tablet TAKE 1/2 TBALET BY MOUTH EVERY 6 HOURS NEEDED FOR NAUSEA 10/09 completed Not Available Not Available Not Available Indocin 50 mg rectal suppository Unwrap and insert 1 supposito ry rectally 3 times a day as needed 2024 active Not Available Not Available Not Avai lable hydrocortis one 2.5 % topical cream 02/27 completed Not Available Not Available Not Available clobetasol 0.05 % topical ointment 02/17 completed Not Available Not Available Not Available verapamil 80 mg tablet TAKE 2 TABLETS BY MOUTH TWICE A DAY 02/17 completed Not Available Not Available Not Available albuterol sulfate HFA 90 mcg/actuati on aerosol inhaler INHALE 2 PUFFS 4 TIMES PER DAY-USE FOR 3 DAYS THEN NEEDED FOR COUGH 02/18 completed Not Available Not Available Not Available neomycin 3.5 mg-polymyxi n 10,000 unit-hydroc ort 10 mg/mL eye drop,susp INSTILL 1 DROP INTO AFFECTED EYE(S) BY OPHTHALMI C ROUTE EVERY 4 HOURS 2014 active Not Available Not Available Not Avai lable amoxicillin 875 mg-potassiu m clavulanate 125 mg tablet TAKE 1 TABLET (ORAL) EVERY 12 HOURS FOR [address] EDEN SWIFT 01/20 completed Not Available Not Available Not Available Topamax 100 mg tablet active Not Available Not Available No t Available Vigamox 0.5 % eye drops INSTILL 1 DROP INTO BOTH EYES THREE TIMES A DAY 09/27 completed Not Available Not Available Not Available Vitals Date Recorded Body height Body mass index (BMI) Body weight Oxygen saturation Oxygen saturation in Arterial blood by Pulse oximetry Heart rate Body temperature Systolic And Diastolic Provider Name and Address Organization Details Last Updated DateTime 2 185.42 cm 26 kg/m2 52234.7 g 98 % 98 % 82 /min 97.6 [degF] 110/60 mm[Hg] Maribell Dobson MA [facility] 2 14:15:47 Date Recorded Body height Body mass index (BMI) Body weight Oxygen saturation Oxygen saturation in Arterial blood by Pulse oximetry Heart rate Body temperature Systolic And Diastolic Provider Name and Address Organization Details Last Updated DateTime 3 185.42 cm 25.2 kg/m2 65336.1 4 g 98 % 98 % 86 /min 98.3 [degF] 130/70 mm[Hg] Maribell Dobson MA [facility] 3 11:35:57 Date Recorded Body mass index (BMI) Body weight Heart rate Body temperature Oxygen saturation Oxygen saturation in Arterial blood by Pulse oximetry Systolic And Diastolic Provider Name and Address Organization Details Last Updated DateTime 4 24.6 kg/m2 28423.3 4 g 81 /min 97.6 [degF] 99 % 99 % 133/82 mm[Hg] Maribell Dobson MA [facility] 4 09:55:58 Date Recorded Body height Provider Name an d Address Organization Details Last Updated DateTime 01/21/2024 185.42 cm Shena Marquez MA [facility] 01/21/2024 09:53:52 Date Recorded Body height Body mass index (BMI) Body weight Body temperature Heart rate Oxygen saturation Oxygen saturation in Arterial blood by Pulse oximetry Systolic And Diastolic Provider Name and Address Organization Details Last Updated DateTime 5 185.42 cm 25.2 kg/m2 84708.2 2 g 97.2 [degF] 62 /min 99 % 99 % 116/72 mm[Hg] Shena william MA [place] - [facility] 5 11:15:54 Social History Question Answer Notes LastModified by Organizat ion Details LastModified Time Tobacco Smoking Status Never Smoker Rosa Navarro MA null, [place] - [facility] 12/09/2014 10:13:42 What Was The Date Of Your Most Recent Tobacco Screening? 02/18/2025 [email or web address] Information not available 02/18/2025 On What Date Was Tobacco Cessation Counseling Provided? 09/27/2020 Information not available 09/27/2020 Sex: Unknown Functional Status Question Answer Note LastModified by Organizat ion Details LastModified Time Do you or have you ever used smokeless tobacco? Never used smokeless tobacco Information not available 09/27/2020 Do you or have you ever used e-cigarettes or vape? Never used electronic cigarettes Information not available 09/27/2020 Mental Status None recorded. Family History Relationship Description Onset Age of this Age Resolved Age Notes LastModified by Organization Details LastModified Time Mother Hypertensive disorder [email or web address] Not available 05/25 09:28:44 Father Hypertensive disorder Not available 05/25 09:28:44 Medical History Condition Response Anxiety Disorder Y Headaches Y Immunizations Vaccine Type Date Status Note Provider Nam e and Address Organization Details Recorded Time Tdap 6 completed Not Available [facility] 10/03/2019 02:39:51 Tdap 1 completed CHELI SCHAEFER Attn: Accounting[address] [place], [address], [place] - [facility] 09/28/2021 14:27:43 COVID-19, mRNA, LNP-S, PF, 30 mcg/0.3 mL dose 1 completed CHELI SCHAEFER Attn: Accounting[address] [place], [address], [place] [facility] 10/09/2022 11:43:16 COVID-19, mRNA, LNP-S, PF, 30 mcg/0.3 mL dose 1 completed CHELI SCHAEFER Attn: Accounting[address] , [place], [address], [facility] 10/09/2022 11:43:16 Influenza, split virus, quadrivalent, preservative 8 completed Not Available [facility] 10/03/2019 02:36:25 Tdap 4 completed Rosa Navarro MA [facility], [place] - [facility] 03/12/2016 15:50:07 Past Encounters Encounter ID Performer Location Encounter Start Date Encounter Closed Date Diagnosis/Indication Diagnosis SNOMED-CT Code Diagnosis ICD10 Code Diagnosis Note [id number] Frank Bedolla MD [address] [address] 12/09/2014 10:01:24 12/09/2014 12:04:08 Upper respiratory infection 36016679 Eye infection 480720203 [id number] Frank Bedolla MD [address] [address] 09/27/2015 16:31:38 09/28/2015 13:18:54 Migraine 31874089 G43.909 [id number] Sher Rojas MD [address] [address] 03/12/2016 15:35:31 03/12/2016 16:31:22 Migraine 85997630 G43.909 reviewed lab from 11/29. cont meds. healthy diet [id number] Sher Rojas MD [address] [address] 05/25/2016 09:19:43 06/07/2016 13:52:28 Injury of lower leg 939603497 S86.902A will get US and start PT. taking indocin reg for headaches. --will have him use ice, tylenol [id number] Jannie Baker MD [address] [address] 07/10/2016 16:37:15 07/11/2016 12:35:52 Acute maxillary sinusitis 91974511 J01.00 push fluids. ok to use Afrin for a few more days. saline ns [id number] ED FLYNN NP [address] [address] 04/17/2017 11:44:46 04/19/2017 12:15:55 Cluster headache 110498805 G44.009 - Relatively controlled - Takes verapamil BID - continue same - Has indocin suppositor y PRN for headache pain - Encouraged routine sleep patterns - RTC annually or as needed Adult heal th examination 039285721 Z00.00 - CHP today per patient request for medication monitoring - Immunizati ons up to date Vitiligo 26553595 L80 - Uses topical creams - clobetasol and tacrolimus - Follows with public information specialist at [facility] [id number] Noelle Wright MD [address] [address] 03/17/2018 14:05:49 03/31/2018 11:17:05 Cluster headache 263383919 G44.009 Standardiz ed adult depression screening tool completed 1113839880 93535 Z13.89 not significan tly depressed. [id number] Noelle Wright MD [address] [address] 07/02/2018 14:03:41 07/07/2018 16:02:03 Occult blood detected in feces 24829690 R19.5 Cluster headache 2102467 09 G44.009 Active or passive immunization 643196390 Z23 risks and benefits of immunizati ons reviewed, and patient agreed to receive shot [id number] Noelle Wright MD [address] [address] 02/27/2019 14:32:29 03/02/2019 08:40:14 Migraine 73623542 G43.909 - Patient reports stable on Verapamil and Indocin- He states he takes Verapamil to manage, but when they get too unbearable , he takes Indocin- Continue as prescribed - Patient reports he was originally diagnosed with headaches by [facility] Vitiligo 99717733 L80 - Patient sees dermatolog ist at [facility] regularly- Manages with Tacrolimus and clobetasol - Currently undergoing weekly UV treatments Groin mass 850760359 R19 .00 - Patient reports he noticed when checking his body for moles- He denies pain, change in size, pain or swelling in scrotum- Patient states they do not cause any symptoms- They are present bi-lateral ly- They are not firm or tender when palpating- Patient declines US at this time. Will notify clinic if they become bothersome - Notify clinic for any changes in size or symptoms Depression screening 171 Z13.31 - Negative depression screening [id number] CHELI SCHAEFER [address] [address] 03/01/2020 15:33:35 03/01/2020 18:52:48 Migraine 16827992 G43.909 - Patient reports stable on Verapamil and Indocin- He states he takes Verapamil to manage, but when they get too unbearable , he takes Indocin- Continue as prescribed Depression screening 171 Z13.31 - Negative depression screening Groin mass 024741716 R19 .00 - Patient reports he noticed when checking his body for moles- He denies pain, change in size, pain or swelling in scrotum- Patient states they do not cause any symptoms- Suggested US to patient and he is agreeable- Order sent to [facility] Vitiligo 30534607 L80 - Patient sees dermatolog ist at [facility] regularly [id number] Noelle Wright MD [address] [address] 09/27/2020 11:37:13 09/28/2020 11:51:25 Migraine 87917554 G43.909 - Patient reports stable on Verapamil and Indocin- He states he takes Verapamil to manage, but when they get too unbearable , he takes Indocin- He reports a recent period where headaches were bad, but has resolved- Continue as prescribed - F/U yearly or as needed Depression screening 171 Z13.31 - Negative depression screening [id number] Litzy coulter MD [address] [address] 09/28/2021 14:04:43 09/29/2021 09:48:43 Adult health examination 655026684 Z00.00 - Patient here for annual exam- Fasting lab order given to patient- He did complete his COVID vaccines, but did not bring his card today- Declines flu shot- BP at goal <130/80- F/U yearly or as needed Impacted c erumen of bilateral ears 0460965532 707327 H61.23 - Cleared with flushing Migraine 86539894 G43.90 9 - Patient reports stable on Verapamil and Indocin- He states he takes Verapamil to manage, but when they get too unbearable , he takes Indocin which is not very often- Continue as prescribed Vitiligo 53715148 L80 - Patient sees dermatolog ist at [facility] regularly- He uses Clobetasol and Pimecrolim us Overweight 180192183 E66 .3 - Patient does exercise regularly Depression screening 171 Z13.31 - Negative depression screening [id number] CHELI SCHAEFER [address] [address] 10/09/2022 11:18:45 10/10/2022 08:24:55 Vitiligo 52439839 L80 - Patient sees dermatolog ist at [facility] regularly. He states he needs a follow up- He uses Clobetasol and Pimecrolim Migraine 14352305 G43.90 9 - Patient reports stable on Verapamil and Indocin- He only takes the Indocin as needed- He was taking more Tylenol recently when family members were hospitaliz ed- Continue as prescribed Anxiety 95033925 F41.9 - Scoring elevated due to recent visit to oncologist Depression screening 171 Z13.31 - Negative depression screening Adult [facility] examination 943665427 Z00.00 - Patient here for annual exam- He just completed fasting labs- BP almost at goal <130/80- F/U yearly or as needed [id number] Licha Hutchinson DO [facility] [address] [address] 01/21/2024 09:38:45 01/21/2024 16:00:22 Vitiligo 42676973 L80 Under the care of dermatolog y will check vitamin B12 level Migraine 01895881 G43.90 9 Under the care of neurology Depression screening 171 Z13.31 Reviewed Adult [facility] examination 898362707 Z00.00 Physical exam unremarkab le, will obtain CBC lipid panel and CMP [id number] Litzy coulter MD [facility] [address] [place] [address] 07/04/2023 11:53:37 07/08/2023 11:58:00 Chronic daily headache 3496548637 34507 R51.9 Original dx of cluster headache (?) now with chronic daily WATSON and likely rebound component. Mr. Echevarria is not interested in other options for management as he views current plan as effective despite need for NSAID TID. I advised chronic high dose NSAID risk of ulcer (local and gastric), kidney injury. He is scheduled to return to [facility] end of July. I agreed to refill his medication for ONE MONTH but will not continue beyond that due to risks and benefit is unclear. Medication monitoring 39 7283144 Z51.81 [id number] [facility] [address] [place] [address] 02/18/2025 11:05:55 02/18/2025 15:48:46 Overweight 100877158 E66.3 Physical examination 588 0005 Z00.00 Physical exam unremarkab le, will obtain CBC lipid panel and CMP Health Concerns Section Related Observation LastModified by Organization Detai ls LastModified Time None Recorded Concern Status LastModified by Organization Details LastModified Time None Recorded Advance Directives Directive None Recorded Payers Insurance Date Sequence Insurance Name Policy Number Policy Berman Covered Member ID Berman Member ID Guarantor Name 02/15/2025 1 [place] [id number] 1 Max Echevarria [id number] Max Echevarria 07/04/2023 1 [place] 105 Max Echevarria [id number] Max Echevarria 07/04/2023 1 [facility] [id number] Max Echevarria [id number] Max Echevarria Notes Date Note Type Note Provider Name and Address Organization Details Recorded Time 09/28/2021 text/html Patient here for annual exam. He reports he is doing well. He did receive his COVID vaccines. He reports his headaches have been doing well. He does take the Indocin when needed and the Verapamil daily. He reports he cut his finger earlier last year and had to get stitches. They also updated his TDAP. He reports he does continue to have problems with constipation. He states he saw a GI doctor previously and they wanted to start Linzess, but it was too expensive. He reports he has not seen his rock mason apprentice for the vitiligo and possibly needs the cream refilled. He reports he continues to exercise regularly. He does not have any questions or concerns at this time. CHELI SCHAEFER Attn: Accounting, [address] , [place], [address], [facility] 09/28/2021 15:29:40 10/09/2022 text/html Patient here for annual exam. He reports he does he is going to make a follow up with the rock mason apprentice for the vitiligo. He has been tanning to help. He reports her takes the Verapamil for cluster headaches. He takes the Indocin as needed. He states he was going through some stress with family members in the hospital and he was taking Tylenol because his headaches were bad. He then started having some GI symptoms and saw his provider. They completed an EGD and CT. He was diagnosed with gastritis. They also found some swollen lymph nodes, enlarged liver and enlarged spleen. They sent him to an oncologist who is running some testing to rule out lymphoma. He reports that is why his screening questionnaire is elevated for anxiety. He is waiting on his results which they told him would be about 2 weeks. He will get the results next week. No other questions or concerns at this time. CHELI SCHAEFER Attn: Accounting, [address] [facility], [place], [address], [facility] 10/09/2022 14:39:03 07/04/2023 text/html 33 yo dx with cluster headaches 10-13 years ago, started on verapamil preventative and indomethacin 50 mg rectally tid prn which he has been using tid essentially scheduled for a two month bout of clusters. When low on medication he supplements with ibu and tylenol. Since completely out of suppository, headache pain has been severely debilitating and normal function is difficult when pain worst. He is unsure why using rectal suppository rather than oral. Indocin rapidly and completely eliminates WATSON. iLtzy Mcintosh MD Attn: Accounting, [address] [facility], [place], [address], [facility] 07/04/2023 13:48:04 01/21/2024 text/html The patient is a very pleasant 33-year-old male past medical history of migraine headaches vitiligo presents to the office annual wellness. Patient is in his usual state of health. The patient has a special type of cluster headache, which is attended to I believe at the [facility]. The patient gets his medications from his neurologic specialist at that facility. In addition, the patient's vitiligo is managed by [facility], and not under my care. Overall the patient is in his usual state of health denies chest pain palpitations nausea vomiting shortness of breath dizziness orthopnea or PND. See assessment and plan Licha Hutchinson DO Attn: Accounting,[address] , [place], [address], [facility] 01/21/2024 10:28:17 02/18/2025 text/html The patient is a very pleasant 34-year-old male presents to the office follow-up regarding annual wellness. Patient is in his usual state of health currently denies chest pain palpitations nausea vomiting shortness of breath dizziness orthopnea or PND. Overall the patient has no new complaints. He also notes that family history remains stable no recent colon cancer, prostate cancer, or diagnosis of early coronary disease in the family see assessment and plan Licha Hutchinson DO Attn: Accounting,[address] , [place], [address], [facility] 02/18/2025 11:25:33
--- OUTSIDE RECORDS SUMMARY | 2025-03-25 09:08 | XMS_ITS | Encounter Summary ---
Author Organization [facility] Address 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 Gender Identity Not on file Sexual Orientation Not on file documented as of this encounter Plan of Treatment Upcoming Encounters Date Type Department Care Team (Late st Contact Info) Description 03/25/2025 10:00 AM CDT Office Visit [facility] Oncology and Hematology - [place] [address] [place] [address] [address] [place] [address] Varun Jenkins MD [address] [facility] [address] [place] [address] documented as of this encounter Visit Diagnoses Diagnosis Headache(784.0)- Primary Headache Lymphadenopathy- Primary Enlargement of lymph nodes documented in this encounter
--- OUTSIDE RECORDS SUMMARY | 2025-03-25 09:08 | XMS_ITS | Clinical Summary ---
Author Organization [facility] Address [address] [place] [address] Care Team Providers Care Staff Mechanical Engineer Name Role Phone Rosa Bruner RADHA Primary Care Provider [phone] Allergies No known active allergies Medications clobetasol 0.05 % ointment clobetasol 0.05 % topical ointment 1 Active indomethacin 25 MG capsule Take 30 mg by mouth as needed. Active verapamil 80 MG tablet 1 Active Family History Medical History Relation Comments Hypertension Father Hypertension Mother Relation Status Comments Father Alive Mother Alive Social History Tobacco Use Types Packs/Day Years Used Date Smoking Tobacco: Never Smokeless Tobacco: Never Alcohol Use Standard Drinks/Week Comments Yes 0 (1 standard drink = 0.6 oz pur e alcohol) socially Sex and Gender Information Value Date Recorded Sex Assigned at Not on file Legal Sex Male 7:15 PM CDT Gender Identity Not on file Sexual Orientation Not on file Last Filed Vital Signs Vital Sign Reading Time Taken Comments Blood Pressure 120/72 09/10/2021 10:46 AM DIRECTOR OF CULTURE Pulse 70 09/10/2021 10:46 AM DIRECTOR OF CULTURE Temperature 36.4 C (97.6 F) 09/10/2021 10:46 AM DIRECTOR OF CULTURE Respiratory Rate 16 09/10/2021 10:46 AM DIRECTOR OF CULTURE Oxygen Saturation 100% 09/10/2021 10:46 AM DIRECTOR OF CULTURE Inhaled Oxygen Concentration - - Weight 86.2 kg (190 lb) 09/10/2021 10:46 AM DIRECTOR OF CULTURE Height 188 cm (6' 2) 09/10/2021 10:46 AM DIRECTOR OF CULTURE Body Mass Index 24.39 09/10/2021 10:46 AM DIRECTOR OF CULTURE Plan of Treatment Health Maintenance Due Date Last Done Comments Annual Physical 1993 Hepatitis C 2008 Hepatitis B Vaccines (1 of 3 - 19+ 3-dose series) 2009 COVID-19 Vaccine (3 - 2023-2 5 season) 2024 01/03/2021, 12/13/2020 DTaP, Tdap and Td Vaccines ( 3 - Td or Tdap) 03/12/2026 03/12/2016, 09/16/2003 HPV Vaccines Aged Out No longer eligi ble based on patient's age to complete this topic Meningococcal B Vaccine Aged Out No l onger eligible based on patient's age to complete this topic Meningococcal Vaccine Aged Out No colt jerald eligible based on patient's age to complete this topic Pneumococcal Vaccine: Pediatrics (0 to 5 Years) and At-Risk Patients (6 to 49 Years) Aged Out No longer eligible b ased on patient's age to complete this topic RSV Immunizations Under 20 Months Aged Out No longer eligible b ased on patient's age to complete this topic Insurance [facility] Care Teams Staff Mechanical Engineer Relationship Specialty Start Date End Date Rosa Bruner NP [address] [place] [address] PCP - General Nurse Practitioner Family 09/10/21
--- OUTSIDE RECORDS SUMMARY | 2025-03-25 09:08 | XMS_ITS | Encounter Summary ---
Author Organization [facility] Address 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 Gender Identity Not on file Sexual Orientation Not on file documented as of this encounter Plan of Treatment Upcoming Encounters Date Type Department Care Team (Late st Contact Info) Description 03/25/2025 10:00 AM CDT Office Visit [facility] Oncology and Hematology - [place] [address] [address] [facility] [address] [place] [address] Varun Jenkins MD [address] [facility] [address] [place] [address] documented as of this encounter Procedures Procedure Name Priority Date/Time Associated Diagnosis Comments IRON PANEL Routine 04/05/2006 3:03 PM CDT CBC WITH DIFFERENTIAL Routine 04/05/2006 3:03 PM CDT CBC WITH DIFFERENTIAL Routine 04/05/2006 3:03 PM CDT BUN Routine 04/05/2006 3:03 PM CDT CREATININE Routine 04/05/2006 3:03 PM CDT documented in this encounter Results * CBC WITH DIFFERENTIAL (04/05/2006 3:03 PM CDT) Pathologist [facility] NEUTROPHILS 51 36 - 74 % INTERFAC E SYSTEM LYMPHOCYTES 37 18 - 53 % INTERFAC E SYSTEM MONOCYTES 7 2 - 13 % INTERFACE SYSTEM EOSINOPHILS 4 2 - 12 % INTERFAC E SYSTEM BASOPHILS 1 0 - 3 % INTERFACE SYSTEM NEUTROPHIL ABSOLUTE 2.08 K/uL INTERFACE SYSTEM LYMPHOCYTE ABSOLUTE 1.51 K/uL INTERFACE SYSTEM MONOCYTE ABSOLUTE 0.29 K/uL INTERFACE SYSTEM EOSINOPHIL ABSOLUTE 0.16 K/uL INTERFACE SYSTEM BASOPHILS ABSOLUTE 0.03 K/uL INTERFACE SYSTEM 04/05/2006 3:03 PM CDT us History Conversion HEMATOLOGY ORDERABLES Final R esult Performing Organization Address City/[facility] de Phone Number INTERFACE SYSTEM Refer to clinic/hospital department * (ABNORMAL) CBC WITH DIFFERENTIAL (04/05/2006 3:03 PM CDT) [facility] WBC 4.1 4.0 - 9.8 K/uL INTERFACE SYSTEM RBC 4.96 4.50 - 5.40 M/uL INTERFACE SYSTEM HEMOGLOBIN 14.8 13.6 - 16.5 g/dL INTERFACE SYSTEM HEMATOCRIT 40.6 40.0 - 48.0 % INTERFACE SYSTEM MCV 81.9(L) 82.0 - 99.0 fL INTERFACE SYSTEM MCH 29.8 27.2 - 32.6 pg INTERFACE SYSTEM MCHC 36.5(H) 31.5 - 35.5 % INTERFACE SYSTEM RDW 13.1 11.5 - 14.5 % INTERFACE SYSTEM RDW-STDEV 39.0 37.1 - 48.7 fL INTERFACE SYSTEM PLATELETS 217 140 - 350 K/uL INTERFACE SYSTEM MPV 11.7 9.3 - 12.4 fL INTERFACE SYSTEM 04/05/2006 3:03 PM CDT us History Conversion HEMATOLOGY ORDERABLES Final R esult Performing Organization Address City/[facility] Co de Phone Number INTERFACE SYSTEM Refer to clinic/hospital department * CREATININE (04/05/2006 3:03 PM CDT) CREATININE 1.0 0.5 - 1.3 mg/dL INTERFACE SYSTEM 04/05/2006 3:03 PM CDT us History Conversion CHEMISTRY ORDERABLES Final Re sult Performing Organization Address [facility] Number INTERFACE SYSTEM Refer to clinic/hospital department * BUN (04/05/2006 3:03 PM CDT) BUN 20 6 - 20 mg/dL INTERFACE SYSTEM 04/05/2006 3:03 PM CDT us History Conversion CHEMISTRY ORDERABLES Final Re sult Performing Organization Address [facility] INTERFACE SYSTEM Refer to clinic/hospital department * IRON PANEL (04/05/2006 3:03 PM CDT) IRON 145 45 - 160 ug/dL INTERFACE SYSTEM TRANSFERRIN 245 200 - 360 mg/dL INTERFACE SYSTEM IRON % SATURATION 47 20 - 50 % INTERFACE SYSTEM TIBC 311 250 - 450 ug/dL INTERFACE SYSTEM 04/05/2006 3:03 PM CDT us History Conversion CHEMISTRY ORDERABLES Final Re sult Performing Organization Address [facility] INTERFACE SYSTEM Refer to clinic/hospital department documented in this encounter Visit Diagnoses Diagnosis Migraine, unspecified, without mention of intractable migraine without mention of status migrainosus- Primary Lymphadenopathy- Primary Enlargement of lymph nodes documented in this encounter
--- OUTSIDE RECORDS SUMMARY | 2025-03-25 09:08 | XMS_ITS | Encounter Summary ---
Author Organization [facility] Address 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 Gender Identity Not on file Sexual Orientation Not on file documented as of this encounter Plan of Treatment Upcoming Encounters Date Type Department Care Team (Late st Contact Info) Description 03/25/2025 10:00 AM CDT Office Visit [facility] Oncology and Hematology - [place] [address] [place] [address] [facility] [address] [place] [address] Varun Jenkins MD [address] [facility] [address] [place] [address] documented as of this encounter Visit Diagnoses Diagnosis Encounter for long-term (current) use of other medications- Primary Lymphadenopathy- Primary Enlargement of lymph nodes documented in this encounter
--- OUTSIDE RECORDS SUMMARY | 2025-03-25 09:08 | XMS_ITS | Encounter Summary ---
Author Organization [facility] Address 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 Gender Identity Not on file Sexual Orientation Not on file documented as of this encounter Plan of Treatment Upcoming Encounters Date Type Department Care Team (Late st Contact Info) Description 03/25/2025 10:00 AM CDT Office Visit [facility] Oncology and Hematology - [place] [address] [place] [address] [facility] [address] [place] [address] Varun Jenkins MD [address] [facility] [address] [place] [address] documented as of this encounter Visit Diagnoses Diagnosis Headache(784.0)- Primary Headache Lymphadenopathy- Primary Enlargement of lymph nodes documented in this encounter
--- OUTSIDE RECORDS SUMMARY | 2025-03-25 09:08 | XMS_ITS | Encounter Summary ---
Author Organization [facility] Address 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 Oncology and Hematology - [place] [address] [place] [address] [facility] [address] [place] [address] Varun Jenkins MD [address] [facility] [address] [place] [address] documented as of this encounter Procedures Procedure Name Priority Date/Time Associated Diagnosis Comments CBC WITH DIFFERENTIAL Routine 08/11/2005 11:20 AM AUTO SERVICE INSTRUCTOR CBC WITH DIFFERENTIAL Routine 08/11/2005 11:20 AM AUTO SERVICE INSTRUCTOR documented in this encounter Results * CBC WITH DIFFERENTIAL (08/11/2005 11:20 AM AUTO SERVICE INSTRUCTOR) NEUTROPHILS 57 36 - 74 % INTERFAC E SYSTEM LYMPHOCYTES 31 18 - 53 % INTERFAC E SYSTEM MONOCYTES 7 2 - 13 % INTERFACE SYSTEM EOSINOPHILS 4 2 - 12 % INTERFAC E SYSTEM BASOPHILS 0 0 - 3 % INTERFACE SYSTEM NEUTROPHIL ABSOLUTE 2.68 K/uL INTERFACE SYSTEM LYMPHOCYTE ABSOLUTE 1.47 K/uL INTERFACE SYSTEM MONOCYTE ABSOLUTE 0.34 K/uL INTERFACE SYSTEM EOSINOPHIL ABSOLUTE 0.17 K/uL INTERFACE SYSTEM BASOPHILS ABSOLUTE 0.02 K/uL INTERFACE SYSTEM 08/11/2005 11:2 0 AM AUTO SERVICE INSTRUCTOR us History Conversion HEMATOLOGY ORDERABLES Final R esult INTERFACE SYSTEM Refer to clinic/hospital department * (ABNORMAL) CBC WITH DIFFERENTIAL (08/11/2005 11:20 AM AUTO SERVICE INSTRUCTOR) WBC 4.7 4.0 - 9.8 K/uL INTERFACE SYSTEM RBC 4.89 4.50 - 5.40 M/uL INTERFACE SYSTEM HEMOGLOBIN 14.7 13.6 - 16.5 g/dL INTERFACE SYSTEM HEMATOCRIT 39.9(L) 40.0 - 48.0 % INTERFACE SYSTEM MCV 81.6(L) 82.0 - 99.0 fL INTERFACE SYSTEM MCH 30.1 27.2 - 32.6 pg INTERFACE SYSTEM MCHC 36.8(H) 31.5 - 35.5 % INTERFACE SYSTEM RDW 12.5 11.5 - 14.5 % INTERFACE SYSTEM RDW-STDEV 36.6(L) 37.1 - 48.7 fL INTERFACE SYSTEM PLATELETS 185 140 - 350 K/uL INTERFACE SYSTEM MPV 10.8 9.3 - 12.4 fL INTERFACE SYSTEM 08/11/2005 11:2 0 AM AUTO SERVICE INSTRUCTOR us History Conversion HEMATOLOGY ORDERABLES Final R esult Performing Organization Address City/[facility]/ZIP Co de Phone Number INTERFACE SYSTEM Refer to clinic/hospital department documented in this encounter Visit Diagnoses Diagnosis Other forms of migraine, without mention of intractable migraine without mention of status migrainosus- Primary Lymphadenopathy- Primary Enlargement of lymph nodes documented in this encounter
--- OUTSIDE RECORDS SUMMARY | 2025-03-25 09:08 | XMS_ITS | Encounter Summary ---
Author Organization [facility] Address 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 Gender Identity Not on file Sexual Orientation Not on file documented as of this encounter Plan of Treatment Upcoming Encounters Date Type Department Care Team (Late st Contact Info) Description 03/25/2025 10:00 AM CDT Office Visit [facility] Oncology and Hematology - [place] [address] [place] [address] [facility] [address] [place] [address] Varun Jenkins MD [address] [facility] [address] [place] [address] documented as of this encounter Visit Diagnoses Diagnosis Migraine, unspecified, without mention of intractable migraine without mention of status migrainosus- Primary Lymphadenopathy- Primary Enlargement of lymph nodes documented in this encounter
--- OUTSIDE RECORDS SUMMARY | 2025-03-25 09:08 | XMS_ITS | Encounter Summary ---
Author Organization [facility] Address 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 [address] [place] [address] documented as of this encounter Visit Diagnoses Diagnosis Headache(784.0)- Primary Headache Lymphadenopathy- Primary Enlargement of lymph nodes documented in this encounter
--- OUTSIDE RECORDS SUMMARY | 2025-03-25 09:08 | XMS_ITS | Encounter Summary ---
Author Organization [facility] Address [address] [place] [address] Care Team Providers Care Edgerman Name Role Phone Unavailable Primary Care Provider Unavailabl e Encounter Details Date Type Department Care Team (Latest Contact Info) Description 07/16/2001 [facility] Con[facility], History HEADACHE (Primary Dx) Social History Tobacco Use Types Packs/Day Years Used Date Smoking Tobacco: Never Assessed Sex and Gender Information Value Date Recorded Sex Assigned at Not on file Legal Sex Male 3:[address]ICE OFFICER Gender Identity Not on file Sexual Orientation Not on file documented as of this encounter Plan of Treatment Upcoming Encounters Date Type Department Care Team (Late st Contact Info) Description 03/25/2025 10:00 AM CDT Office Visit [facility] Oncology and Hematology - [place] [address] [place] [address] [facility] [address] [place] [address] Varun Jenkins MD [address] [facility] [address] [place] [address] documented as of this encounter Visit Diagnoses Diagnosis Headache(784.0)- Primary Headache Lymphadenopathy- Primary Enlargement of lymph nodes documented in this encounter
--- OUTSIDE RECORDS SUMMARY | 2025-03-25 09:08 | XMS_ITS | Encounter Summary ---
Author Organization [facility] Address 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 Gender Identity Not on file Sexual Orientation Not on file documented as of this encounter Plan of Treatment Upcoming Encounters Date Type Department Care Team (Late st Contact Info) Description 03/25/2025 10:00 AM CDT Office Visit [facility] Oncology and Hematology - [place] [address] [place] [address] [facility] 200 [place] [address] Varun Jenkins MD [address] [facility] [address] [place] [address] documented as of this encounter Procedures Procedure Name Priority Date/Time Associated Diagnosis Comments IRON, TIBC, AND PERCENT SATURATION Routine 02/10/2005 10:24 AM CDT CBC WITH DIFFERENTIAL Routine 02/10/2005 10:24 AM CDT CBC WITH DIFFERENTIAL Routine 02/10/2005 10:24 AM CDT COMPREHENSIVE METABOLIC PANEL Routine 02/10/2005 10:24 AM CDT documented in this encounter Results * CBC WITH DIFFERENTIAL (02/10/2005 10:24 AM CDT) NEUTROPHILS 72 36 - 74 % INTERFAC E SYSTEM LYMPHOCYTES 20 18 - 53 % INTERFAC E SYSTEM MONOCYTES 6 2 - 13 % INTERFACE SYSTEM EOSINOPHILS 2 2 - 12 % INTERFAC E SYSTEM BASOPHILS 0 0 - 3 % INTERFACE SYSTEM NEUTROPHIL ABSOLUTE 3.62 K/uL INTERFACE SYSTEM LYMPHOCYTE ABSOLUTE 1.02 K/uL INTERFACE SYSTEM MONOCYTE ABSOLUTE 0.30 K/uL INTERFACE SYSTEM EOSINOPHIL ABSOLUTE 0.08 K/uL INTERFACE SYSTEM BASOPHILS ABSOLUTE 0.01 K/uL INTERFACE SYSTEM 02/10/2005 10:2 4 AM CDT us History Conversion HEMATOLOGY ORDERABLES Final R esult Performing Organization Address City/[facility] de Phone Number INTERFACE SYSTEM Refer to clinic/hospital department * (ABNORMAL) CBC WITH DIFFERENTIAL (02/10/2005 10:24 AM CDT) WBC 5.0 4.0 - 9.8 K/uL INTERFACE SYSTEM RBC 4.58 4.50 - 5.40 M/uL INTERFACE SYSTEM HEMOGLOBIN 13.8 13.6 - 16.5 g/dL INTERFACE SYSTEM HEMATOCRIT 37.9(L) 40.0 - 48.0 % INTERFACE SYSTEM MCV 82.8 82.0 - 99.0 fL INTERFACE SYSTEM MCH 30.1 27.2 - 32.6 pg INTERFACE SYSTEM MCHC 36.4(H) 31.5 - 35.5 % INTERFACE SYSTEM RDW 12.3 11.5 - 14.5 % INTERFACE SYSTEM RDW-STDEV 37.2 37.1 - 48.7 fL INTERFACE SYSTEM PLATELETS 203 140 - 350 K/uL INTERFACE SYSTEM MPV 11.1 9.3 - 12.4 fL INTERFACE SYSTEM 02/10/2005 10:2 4 AM CDT us History Conversion HEMATOLOGY ORDERABLES Final R esult Performing Organization Address City/[facility] de Phone Number INTERFACE SYSTEM Refer to clinic/hospital department * IRON AND TIBC (02/10/2005 10:24 AM CDT) IRON 104 45 - 160 ug/dL INTERFACE SYSTEM IRON % SATURATION 36 20 - 50 % INTERFACE SYSTEM TIBC 292 250 - 450 ug/dL INTERFACE SYSTEM 02/10/2005 10:2 4 AM CDT us History Conversion CHEMISTRY ORDERABLES Final Re sult Performing Organization Address City/[facility] Co de Phone Number INTERFACE SYSTEM Refer to clinic/hospital department * COMPREHENSIVE METABOLIC PANEL (02/10/2005 10:24 AM CDT) GLUCOSE 75 60 - 110 mg/dL INTERFACE SYSTEM CREATININE 0.6 0.5 - 1.3 mg/dL INTERFACE SYSTEM CALCIUM 9.7 8.4 - 10.2 mg/dL INTERFACE SYSTEM AST 20 12 - 38 U/L INTERFACE SYSTEM ALKALINE PHOSPHATASE 220 40 - 390 U/L INTERFACE SYSTEM BUN 16 6 - 20 mg/dL INTERFACE SYSTEM BILIRUBIN TOTAL 0.7 0.2 - 1.0 mg/dL INTERFACE SYSTEM ALBUMIN 4.4 3.8 - 5.4 g/dL INTERFACE SYSTEM TOTAL PROTEIN 7.3 6.3 - 8.6 g/dL INTERFACE SYSTEM ALT 16 0 - 41 U/L INTERFACE SYSTEM SODIUM 141 135 - 145 mmol/L INTERFACE SYSTEM POTASSIUM 4.1 3.5 - 4.9 mmol/L INTERFACE SYSTEM CHLORIDE 104 96 - 108 mmol/L INTERFACE SYSTEM CO2 28 22 - 30 mmol/L INTERFACE SYSTEM 02/10/2005 10:2 4 AM CDT us History Conversion CHEMISTRY ORDERABLES Final Re sult Performing Organization Address City/[facility] Co de Phone Number INTERFACE SYSTEM Refer to clinic/hospital department documented in this encounter Visit Diagnoses Diagnosis Headache(784.0)- Primary Headache Lymphadenopathy- Primary Enlargement of lymph nodes documented in this encounter
--- OUTSIDE RECORDS SUMMARY | 2025-03-25 09:08 | XMS_ITS | Encounter Summary ---
Author Organization [facility] Address 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 Gender Identity Not on file Sexual Orientation Not on file documented as of this encounter Plan of Treatment Upcoming Encounters Date Type Department Care Team (Late st Contact Info) Description 03/25/2025 10:00 AM CDT Office Visit [facility] Oncology and Hematology - [place] [address] [place] [address] [facility] 200 [place] [address] Varun Jenkins MD [address] [facility] [address] [place] [address] documented as of this encounter Visit Diagnoses Diagnosis Encounter for long-term (current) use of other medications- Primary Lymphadenopathy- Primary Enlargement of lymph nodes documented in this encounter
--- OUTSIDE RECORDS SUMMARY | 2025-03-25 09:08 | XMS_ITS | Encounter Summary ---
Author Organization [facility] Address 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 Gender Identity Not on file Sexual Orientation Not on file documented as of this encounter Plan of Treatment Upcoming Encounters Date Type Department Care Team (Late st Contact Info) Description 03/25/2025 10:00 AM CDT Office Visit [facility] Oncology and Hematology - [place] [address] [place] [address] [facility] 200 [place] [address] Varun Jenkins MD [address] [facility] [address] [place] [address] documented as of this encounter Procedures Procedure Name Priority Date/Time Associated Diagnosis Comments CBC WITH DIFFERENTIAL Routine 04/21/2005 12:02 PM CDT CBC WITH DIFFERENTIAL Routine 04/21/2005 12:02 PM CDT documented in this encounter Results * CBC WITH DIFFERENTIAL (04/21/2005 12:02 PM CDT) NEUTROPHILS 54 36 - 74 % INTERFAC E SYSTEM LYMPHOCYTES 35 18 - 53 % INTERFAC E SYSTEM MONOCYTES 8 2 - 13 % INTERFACE SYSTEM EOSINOPHILS 3 2 - 12 % INTERFAC E SYSTEM BASOPHILS 1 0 - 3 % INTERFACE SYSTEM NEUTROPHIL ABSOLUTE 1.95 K/uL INTERFACE SYSTEM LYMPHOCYTE ABSOLUTE 1.26 K/uL INTERFACE SYSTEM MONOCYTE ABSOLUTE 0.28 K/uL INTERFACE SYSTEM EOSINOPHIL ABSOLUTE 0.12 K/uL INTERFACE SYSTEM BASOPHILS ABSOLUTE 0.02 K/uL INTERFACE SYSTEM 04/21/2005 12:0 2 PM CDT us History Conversion HEMATOLOGY ORDERABLES Final R esult INTERFACE SYSTEM Refer to clinic/hospital department * (ABNORMAL) CBC WITH DIFFERENTIAL (04/21/2005 12:02 PM CDT) WBC 3.6(L) 4.0 - 9.8 K/uL INTERFACE SYSTEM RBC 4.95 4.50 - 5.40 M/uL INTERFACE SYSTEM HEMOGLOBIN 14.7 13.6 - 16.5 g/dL INTERFACE SYSTEM HEMATOCRIT 39.5(L) 40.0 - 48.0 % INTERFACE SYSTEM MCV 79.8(L) 82.0 - 99.0 fL INTERFACE SYSTEM MCH 29.7 27.2 - 32.6 pg INTERFACE SYSTEM MCHC 37.2(H) 31.5 - 35.5 % INTERFACE SYSTEM RDW 12.4 11.5 - 14.5 % INTERFACE SYSTEM RDW-STDEV 35.9(L) 37.1 - 48.7 fL INTERFACE SYSTEM PLATELETS 194 140 - 350 K/uL INTERFACE SYSTEM MPV 10.9 9.3 - 12.4 fL INTERFACE SYSTEM 04/21/2005 12:0 2 PM CDT us History Conversion HEMATOLOGY ORDERABLES Final R esult Performing Organization Address City/[facility] Co de Phone Number INTERFACE SYSTEM Refer to clinic/hospital department documented in this encounter Visit Diagnoses Diagnosis Laboratory examination- Primary Lymphadenopathy- Primary Enlargement of lymph nodes documented in this encounter
--- OUTSIDE RECORDS SUMMARY | 2025-03-25 09:08 | XMS_ITS | Encounter Summary ---
Author Organization [facility] Address 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 [address] [place] [address] documented as of this encounter Visit Diagnoses Not on filedocumented in this encounter
--- OUTSIDE RECORDS SUMMARY | 2025-03-25 09:08 | XMS_ITS | Encounter Summary ---
Author Organization [facility] Address 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 200 [place] [address] Varun Jenkins MD [address] [facility] [address] [place] [address] documented as of this encounter Visit Diagnoses Diagnosis Headache(784.0)- Primary Headache Lymphadenopathy- Primary Enlargement of lymph nodes documented in this encounter
--- OUTSIDE RECORDS SUMMARY | 2025-03-25 09:08 | XMS_ITS | Encounter Summary ---
Author Organization [facility] Address 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
--- OUTSIDE RECORDS SUMMARY | 2025-03-25 09:08 | XMS_ITS | Encounter Summary ---
Author Organization [facility] Address 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 Gender Identity Not on file Sexual Orientation Not on file documented as of this encounter Plan of Treatment Upcoming Encounters Date Type Department Care Team (Late st Contact Info) Description 03/25/2025 10:00 AM CDT Office Visit [facility] Oncology and Hematology - [place] [address] [place] [address] [facility] 200 [place] [address] Varun Jenkins MD [address] [facility] [address] [place] [address] documented as of this encounter Visit Diagnoses Diagnosis Encounter for long-term (current) use of other medications- Primary Lymphadenopathy- Primary Enlargement of lymph nodes documented in this encounter
--- OUTSIDE RECORDS SUMMARY | 2025-03-25 09:08 | XMS_ITS | Encounter Summary ---
Author Organization [facility] Address 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 Gender Identity Not on file Sexual Orientation Not on file documented as of this encounter Plan of Treatment Upcoming Encounters Date Type Department Care Team (Late st Contact Info) Description 03/25/2025 10:00 AM CDT Office Visit [facility] Oncology and Hematology - [place] [address] [place] [address] [facility] 200 [place] [address] Varun Jenkins MD [address] [facility] [address] [place] [address] documented as of this encounter Visit Diagnoses Diagnosis Headache(784.0)- Primary Headache Lymphadenopathy- Primary Enlargement of lymph nodes documented in this encounter
--- OUTSIDE RECORDS SUMMARY | 2025-03-25 09:08 | XMS_ITS | Encounter Summary ---
Author Organization [facility] Address 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 Gender Identity Not on file Sexual Orientation Not on file documented as of this encounter Plan of Treatment Upcoming Encounters Date Type Department Care Team (Late st Contact Info) Description 03/25/2025 10:00 AM CDT Office Visit [facility] Oncology and Hematology - [place] [address] [place] [address] [facility] 200 [place] [address] Varun Jenkins MD [address] [facility] [address] [place] [address] documented as of this encounter Procedures Procedure Name Priority Date/Time Associated Diagnosis Comments IRON PANEL Routine 10/19/2006 8:33 AM ORDER MAKE UP CLERK CBC WITH DIFFERENTIAL Routine 10/19/2006 8:33 AM ORDER MAKE UP CLERK CBC WITH DIFFERENTIAL Routine 10/19/2006 8:33 AM ORDER MAKE UP CLERK TSH Routine 10/19/2006 8:33 AM ORDER MAKE UP CLERK COMPREHENSIVE METABOLIC PANEL Routine 10/19/2006 8:33 AM ORDER MAKE UP CLERK documented in this encounter Results * (ABNORMAL) CBC WITH DIFFERENTIAL (10/19/2006 8:33 AM ORDER MAKE UP CLERK) NEUTROPHILS 53 45 - 70 % INTERFAC E SYSTEM LYMPHOCYTES 36 16 - 45 % INTERFAC E SYSTEM MONOCYTES 7 3 - 13 % INTERFACE SYSTEM EOSINOPHILS 3 0 - 7 % INTERFAC E SYSTEM BASOPHILS 1 0 - 2 % INTERFACE SYSTEM NEUTROPHIL ABSOLUTE 1.75(L) 1.90 - 7.00 K/uL INTERFACE SYSTEM LYMPHOCYTE ABSOLUTE 1.19 0.70 - 4.50 K/uL INTERFACE SYSTEM MONOCYTE ABSOLUTE 0.23 0.10 - 1.30 K/uL INTERFACE SYSTEM EOSINOPHIL ABSOLUTE 0.09 0.00 - 0.70 K/uL INTERFACE SYSTEM BASOPHILS ABSOLUTE 0.02 0.00 - 0.20 K/uL INTERFACE SYSTEM 10/19/2006 8:33 AM ORDER MAKE UP CLERK us History Conversion HEMATOLOGY ORDERABLES Edited Performing Organization Address City/[facility] de Phone Number INTERFACE SYSTEM Refer to clinic/hospital department * (ABNORMAL) CBC WITH DIFFERENTIAL (10/19/2006 8:33 AM ORDER MAKE UP CLERK) WBC 3.3(L) 4.0 - 9.8 K/uL INTERFACE SYSTEM RBC 4.98 4.50 - 5.40 M/uL INTERFACE SYSTEM HEMOGLOBIN 15.2 13.6 - 16.5 g/dL INTERFACE SYSTEM HEMATOCRIT 42.0 40.0 - 48.0 % INTERFACE SYSTEM Comment:spun MCV 84.3 82.0 - 99.0 fL INTERFACE SYSTEM MCH 30.5 27.2 - 32.6 pg INTERFACE SYSTEM MCHC 36.2(H) 31.5 - 35.5 % INTERFACE SYSTEM RDW 12.8 11.5 - 14.5 % INTERFACE SYSTEM RDW-STDEV 37.7 37.1 - 48.7 fL INTERFACE SYSTEM PLATELETS 172 140 - 350 K/uL INTERFACE SYSTEM MPV 11.5 9.3 - 12.4 fL INTERFACE SYSTEM 10/19/2006 8:33 AM ORDER MAKE UP CLERK us History Conversion HEMATOLOGY ORDERABLES Edited Performing Organization Address City/[facility] Co de Phone Number INTERFACE SYSTEM Refer to clinic/hospital department * IRON PANEL (10/19/2006 8:33 AM ORDER MAKE UP CLERK) IRON 128 45 - 160 ug/dL INTERFACE SYSTEM TRANSFERRIN 225 200 - 360 mg/dL INTERFACE SYSTEM IRON % SATURATION 45 20 - 50 % INTERFACE SYSTEM TIBC 286 250 - 450 ug/dL INTERFACE SYSTEM 10/19/2006 8:33 AM ORDER MAKE UP CLERK us History Conversion CHEMISTRY ORDERABLES Edited Performing Organization Address [facility] de Phone Number INTERFACE SYSTEM Refer to clinic/hospital department * TSH (10/19/2006 8:33 AM ORDER MAKE UP CLERK) TSH 1.55 0.27 - 4.20 uU/mL INTERFACE SYSTEM 10/19/2006 8:33 AM ORDER MAKE UP CLERK us History Conversion CHEMISTRY ORDERABLES Edited Performing Organization Address [facility] Phone Number INTERFACE SYSTEM Refer to clinic/hospital department * COMPREHENSIVE METABOLIC PANEL (10/19/2006 8:33 AM ORDER MAKE UP CLERK) GLUCOSE 99 60 - 110 mg/dL INTERFACE SYSTEM CREATININE 0.79 0.67 - 1.17 mg/dL INTERFACE SYSTEM CALCIUM 9.4 8.4 - 10.2 mg/dL INTERFACE SYSTEM ALKALINE PHOSPHATASE 344 40 - 390 U/L INTERFACE SYSTEM AST 29 12 - 38 U/L INTERFACE SYSTEM ALT 19 0 - 41 U/L INTERFACE SYSTEM TOTAL PROTEIN 6.8 6.3 - 8.6 g/dL INTERFACE SYSTEM ALBUMIN 4.5 3.2 - 4.5 g/dL INTERFACE SYSTEM BILIRUBIN TOTAL 0.8 0.2 - 1.0 mg/dL INTERFACE SYSTEM BUN 19 6 - 20 mg/dL INTERFACE SYSTEM SODIUM 141 135 - 145 mmol/L INTERFACE SYSTEM POTASSIUM 4.1 3.5 - 4.9 mmol/L INTERFACE SYSTEM CHLORIDE 107 96 - 108 mmol/L INTERFACE SYSTEM CO2 26 22 - 30 mmol/L INTERFACE SYSTEM GFR, N/A:MDRD equation validated for pts. >18 yrs. >=60 mL/min/1 .7 sq meter INTERFACE SYSTEM GFR N/A:MDRD equation validated for pts. >18 yrs. >=60 mL/min/1 .7 sq meter INTERFACE SYSTEM Comment: Estimated GFR rate interpretative information for both Americans and non- Americans is available on the [facility] Intranet at: [email or web address] Select: Lab Policies and Procedures Select: Reference Ranges - GFR 10/19/2006 8:33 AM ORDER MAKE UP CLERK us History Conversion CHEMISTRY ORDERABLES Edited INTERFACE SYSTEM Refer to clinic/hospital department documented in this encounter Visit Diagnoses Diagnosis Other forms of migraine, without mention of intractable migraine without mention of status migrainosus- Primary Lymphadenopathy- Primary Enlargement of lymph nodes documented in this encounter
[2025-03-25 09:11] LABS: Hematocrit 46.1 % (42.0-52.0); Hemoglobin 16.5 g/dL (14.0-18.0); Immature Granulocyte Percent A 1.0 % (0-0.5); Lymphocytes Absolute Auto 1.34 K/mm3 (0.9-3.2); Mean Corpuscular HGB Conc 35.8 g/dl (32-36); Mean Corpuscular Hemoglobin 30.6 pg (26-34); Mean Corpuscular Volume 85.4 fl (80-100); Nucleated Red Blood Cells Absolute Auto 0.000 K/mm3 (0.0-0.012); Nucleated Red Blood Cells Perc 0.0 % (0.0-0.2); Platelet Count Result 202 k/mm3 (150-375); Red Blood Count 5.40 M/mm3 (4.6-6.20); White Blood Count 4.8 K/mm3 (4.5-10.0)
[2025-03-25 09:25] LABS: Blood Urea Nitrogen 20 mg/dL (8-26); Carbon Dioxide 27 mmol/L (22-30); Chloride 101 mmol/L (98-109); Estimated Glomerular Filt Rate > 60; Glucose 86 mg/dL (70-105); Ionized Calcium (POC) 1.26 mmol/L (1.11-1.31); Potassium 4.2 mmol/L (3.5-4.9); Sodium 140 mmol/L (138-146)
[2025-03-25 11:53] LABS: Alanine Aminotransferase 17 U/L (6-50); Albumin Level 4.7 g/dL (3.5-5.1); Alkaline Phosphatase 63 U/L (38-126); Anion Gap 8 mmol/L (4-12); Aspartate Amino Transferase 52 U/L (17-59); Bilirubin,Total 0.8 mg/dL (0.2-1.3); Blood Urea Nitrogen 19 mg/dL (9-20); Calcium 9.7 mg/dL (8.4-10.2); Carbon Dioxide 29 mmol/L (22-30); Chloride 102 mmol/L (98-107); Estimated Glomerular Filt Rate > 60; Glucose 88 mg/dL (65-110); Potassium 4.4 mmol/L (3.4-5.0); Sodium 139 mmol/L (137-145); Total Protein 7.8 g/dL (6.3-8.2)
== END 2025-03-25 08:59 | disposition home or self-care (01) ==
PROVIDERS: PCP Nurse Practitioner Family; Visit Provider Internal Medicine Hematology & Oncology
DX: R59.1 Generalized enlarged lymph nodes (principal)
CPT/HCPCS: 36415; 80047; 80053; 85025